=== PATIENT | female | born 1985 | race Two or more races ===

== ENCOUNTER 2019-04-05 07:30 | Inpatient (IN) | payer BC ==
[~2019-04-05] VITALS: Ht 154.9 cm; Wt 55.0 kg
[~2019-04-05 07:30] MED LIST: ATOM25CA PO; CARB200T4 PO; ETHI1TAB26 PO; FLUO20CA19 PO; GABA600T7 PO; LITH600C PO; MULT-658 PO; SPIR25TA5 PO
[2019-04-05 08:27] VITALS: BP 94/48
[2019-04-05] MEDS ORDERED: PROMETHAZINE 25 MG/ML, 1ML IV PRN (08:30)
[2019-04-05] MEDS ORDERED: hydrALAzine 20 MG/ML, 1ML IV PRN (08:30)
[2019-04-05] MEDS ORDERED: EPHEDRINE 50 MG/ML, 1ML IVPush PRN (08:30)
[2019-04-05] MEDS ORDERED: HYDROmorphone 2 MG/ML, 1ML IVPush PRN (08:30)
[2019-04-05] MEDS ORDERED: OXYcodone 5 MG/5 ML ORAL.SOL UDC PO PRN (08:30)
[2019-04-05] MEDS ORDERED: LABETALOL 5MG/ML, 20ML IV PRN (08:30)
[2019-04-05] MEDS ORDERED: ONDANSETRON 2MG/ML, 2ML IV PRN (08:30)
[2019-04-05] MEDS ORDERED: LACTATED RINGERS 1,000 ML IV SCH (08:36)
[2019-04-05] MEDS ORDERED: BUSP5TAB2 PO (08:38)
[2019-04-05 08:49] LABS: HCG UR SG 1.021 (1.003-1.030)
[2019-04-05] MEDS ORDERED: GABAPENTIN 300 MG CAPSULE PO ONE (09:00)
[2019-04-05] MEDS ORDERED: ACETAMINOPHEN 500 MG TABLET PO ONE (09:00)
[2019-04-05] MEDS ORDERED: LIDOCAINE/PF 0.5% ,50ML ONE (09:28)
[2019-04-05] MEDS ORDERED: BUPIVACAINE/PF 0.25% ONE (09:28)
[2019-04-05] MEDS ORDERED: VANCOMYCIN 1,000 MG ONE (09:29)
[2019-04-05] MEDS ORDERED: THROMBIN 5,000 UNIT VIAL TP ONE (09:29)
[2019-04-05] MEDS ORDERED: EPINEPHRINE 1 MG/ML, 1ML ONE (09:29)
[2019-04-05] MEDS ORDERED: VANCOMYCIN 500 MG ONE (09:29)
[2019-04-05] MEDS ORDERED: MIDAZOLAM 1 MG/ML, 2ML ONE (09:31)
[2019-04-05] MEDS ORDERED: FENTANYL PF 250 MCG/5ML ONE (09:31)
[2019-04-05] MEDS ORDERED: SUCCINYLCHOLINE 20 MG/ML, 10ML ONE (09:34)
[2019-04-05] MEDS ORDERED: CEFAZOLIN 1,000 MG ONE (09:34)
[2019-04-05] MEDS ORDERED: ONDANSETRON 2MG/ML, 2ML ONE (09:34)
[2019-04-05] MEDS ORDERED: DEXAMETHASONE 4 MG/ML, 1ML ONE (09:34)
[2019-04-05] MEDS ORDERED: PROPOFOL 10 MG/ML, 20ML ONE (09:34)
[2019-04-05] MEDS ORDERED: SODIUM CHLORIDE 0.9% PF 10ML ONE (10:24)
[2019-04-05] MEDS ORDERED: KETOROLAC 30 MG/1 ML ONE (10:24)
[2019-04-05] MEDS ORDERED: HYDROmorphone 1 MG/ML, 1ML INJ ONE (13:26)
[2019-04-05] MEDS ORDERED: FENTANYL PF 100 MCG/2ML ONE (13:26)
[2019-04-05] MEDS ORDERED: PROMETHAZINE 25 MG/ML, 1ML ONE (13:26)
[2019-04-05] MEDS ORDERED: METHOCARBAMOL 1000MG/10 ML IVPB ONE (13:30)
[2019-04-05] MEDS ORDERED: METHOCARBAMOL 1,000 MG in DEXTROSE 5% 100 ML IV ONE (13:30)
[2019-04-05] MEDS: FENTANYL PF 100 MCG/2ML IV PRN ×3 (13:38→14:08)
[2019-04-05 15:00] VITALS: BP 107/68
[2019-04-05] MEDS: morphine SULFATE 10 MG/ML, 1ML IV PRN ×4 (15:00→17:07)
[2019-04-05] MEDS ORDERED: MORPHINE SULFATE 4 MG/ML, 1ML ONE ×2 (15:03→16:04)
[2019-04-05] MEDS ORDERED: HYDROcodone/APAP 5/325 TABLET ONE (15:52)
[2019-04-05] MEDS: HYDROcodone/APAP 5/325 TABLET PO PRN ×2 (15:55→20:15)
[2019-04-05] MEDS ORDERED: BISACODYL 10 MG SUPP PR PRN (17:00)
[2019-04-05] MEDS ORDERED: PROMETHAZINE 25 MG/ML, 1ML IM PRN (17:00)
[2019-04-05] MEDS ORDERED: MAGNESIUM HYDROXIDE 8%, 30ML UDC PO PRN (17:00)
[2019-04-05] MEDS ORDERED: DIAZEPAM 5 MG/ML, 2ML IV PRN (17:30)
[2019-04-05] MEDS ORDERED: DIAZEPAM 5 MG TABLET PO PRN (17:30)
[2019-04-05] MEDS ORDERED: DIAZEPAM 5 MG/ML, 10ML VIAL IV PRN (17:30)
[2019-04-05] MEDS: CEFAZOLIN PMX 1GM/50ML 50 ML IVPB SCH (17:44)
[2019-04-05] MEDS: D5%-0.9% NACL+KCL 20MEQ 1,000 ML IV SCH (18:29)
[2019-04-05] MEDS: HYDROmorphone 1 MG/ML, 1ML INJ IV PRN ×3 (19:11→23:13)
[2019-04-05 19:59] VITALS: BP 108/71
[2019-04-05] MEDS: SENNA/DOCUSATE TABLET PO SCH (20:13)
[2019-04-05] MEDS: BUSPIRONE 5 MG TABLET PO SCH (20:15)
[2019-04-05] MEDS: GABAPENTIN 300 MG CAPSULE PO SCH (20:15)
[2019-04-05] MEDS: CARBAMAZEPINE 200 MG TABLET PO SCH (20:15)
[2019-04-05] MEDS ORDERED: HYDROmorphone PCA 30 MG/30 ML IV PRN ×3 (21:00→22:30)
[2019-04-05] MEDS: METHOCARBAMOL 750 MG in DEXTROSE 5% 100 ML IV SCH (21:04)
[2019-04-05] MEDS: DEXAMETHASONE 4 MG/ML, 1ML IVPush SCH (23:13)
[2019-04-05 23:55] VITALS: BP 107/75
[2019-04-06] MEDS: CEFAZOLIN PMX 1GM/50ML 50 ML IVPB SCH (01:52)
[2019-04-06] MEDS: D5%-0.9% NACL+KCL 20MEQ 1,000 ML IV SCH ×3 (02:51→22:47)
[2019-04-06] MEDS: DEXAMETHASONE 4 MG/ML, 1ML IVPush SCH ×2 (02:59→05:52)
[2019-04-06 03:00] VITALS: BP 112/76
[2019-04-06 05:25] LABS: MEAN CORPUSCULAR HEMOGLOBIN 32.4 pg (27.0-34.8); MEAN CORPUSCULAR HGB CONC 33.4 g/dL (32.4-35.8); MEAN CORPUSCULAR VOLUME 96.9 fL (80-100); MEAN PLATELET VOLUME 7.6 fL (7.4-10.4); PLATELET COUNT 338 x10^3/uL (130-400); RED BLOOD COUNT 3.62 x10^6/uL (3.82-5.3); RED CELL DISTRIBUTION WIDTH 13.6 % (9.6-15.2)
[2019-04-06] MEDS: METHOCARBAMOL 750 MG in DEXTROSE 5% 100 ML IV SCH ×3 (05:25→21:17)
[2019-04-06 05:37] LABS: ANION GAP 7 mmol/L (5-15); CALCIUM 8.1 mg/dL (8.5-10.1); CHLORIDE 107 mmol/L (98-107); CREATININE 0.78 mg/dL (0.55-1.02)
[2019-04-06 06:15] LABS: MD YES
[2019-04-06 06:16] LABS: BAND#(MANUAL) 1.93 x10^3/uL; BANDS%(MANUAL) 7 % (0-7); LYMPH#(MANUAL) 0.55 x10^3/uL (1-3.4); LYMPHS% (MANUAL) 2 % (22-44); MONOS#(MANUAL) 0.55 x10^3/uL (0.3-2.7); MONOS% (MANUAL) 2 % (2-9); SEG#(MANUAL) 24.48 x10^3/uL (1.8-6.8); SEGS% (MANUAL) 89 % (42-75)
[2019-04-06 06:17] LABS: <PLATELET ESTIMATE> ADEQUATE; <PLT MORPHOLOGY> NORMAL PLT MORPH; <RBC MORPHOLOGY> NORMAL
[2019-04-06 08:00] VITALS: BP 96/65
[2019-04-06] MEDS: SPIRONOLACTONE 50 MG TABLET PO SCH (09:59)
[2019-04-06] MEDS: FLUOXETINE HCL 20 MG CAPSULE PO SCH (10:00)
[2019-04-06] MEDS: BUSPIRONE 5 MG TABLET PO SCH ×2 (10:00→21:17)
[2019-04-06] MEDS: CARBAMAZEPINE 200 MG TABLET PO SCH ×2 (10:00→21:19)
[2019-04-06] MEDS: SENNA/DOCUSATE TABLET PO SCH ×2 (10:00→21:17)
[2019-04-06] MEDS: GABAPENTIN 300 MG CAPSULE PO SCH ×3 (10:00→21:17)
[2019-04-06] MEDS: ATOMOXETINE 25 MG HOMEMEDPO SCH (10:01)
[2019-04-06] MEDS: DROSPIRENONE HOMEMEDPO SCH (10:02)
[2019-04-06] MEDS: ETHINYL ESTRADIOL HOMEMEDPO SCH (10:02)
[2019-04-06 11:34] VITALS: BP 98/64
[2019-04-06 16:30] VITALS: BP 107/72
[2019-04-06] MEDS: LITHIUM CARBONATE 300 MG TABLET.ER PO SCH (16:35)
[2019-04-06 18:12] VITALS: BP 115/73
[2019-04-06] MEDS: CIPROFLOXACIN 500 MG TABLET PO SCH (21:17)
[2019-04-07 01:29] VITALS: BP 112/67
[2019-04-07] MEDS ORDERED: ACETAMINOPHEN 325 MG TABLET PO PRN (01:45)
[2019-04-07] MEDS: METHOCARBAMOL 750 MG in DEXTROSE 5% 100 ML IV SCH ×2 (05:39→14:11)
[2019-04-07 06:08] LABS: MEAN CORPUSCULAR HEMOGLOBIN 32.3 pg (27.0-34.8); MEAN CORPUSCULAR HGB CONC 33.3 g/dL (32.4-35.8); MEAN CORPUSCULAR VOLUME 97.1 fL (80-100); MEAN PLATELET VOLUME 7.2 fL (7.4-10.4); PLATELET COUNT 297 x10^3/uL (130-400); RED BLOOD COUNT 3.39 x10^6/uL (3.82-5.3); RED CELL DISTRIBUTION WIDTH 13.3 % (9.6-15.2)
[2019-04-07 06:15] LABS: ANION GAP 4 mmol/L (5-15); CALCIUM 8.2 mg/dL (8.5-10.1); CHLORIDE 109 mmol/L (98-107)
[2019-04-07 06:18] LABS: CREATININE 0.64 mg/dL (0.55-1.02)
[2019-04-07 06:49] VITALS: BP 125/72
[2019-04-07] MEDS: ATOMOXETINE 25 MG HOMEMEDPO SCH (09:00)
[2019-04-07] MEDS: DROSPIRENONE HOMEMEDPO SCH (09:00)
[2019-04-07] MEDS: ETHINYL ESTRADIOL HOMEMEDPO SCH (09:00)
[2019-04-07 09:10] LABS: BASOPHILS # (AUTO) 0.03 x10^3/uL (0-0.1); BASOPHILS % (AUTO) 0 % (0-1); EOSINOPHILS # (AUTO) 0.02 x10^3/uL (0-0.4); EOSINOPHILS % (AUTO) 0 % (1-7); LYMPHOCYTES % (AUTO) 5 % (22-44); MD SCAN; MONOCYTES # (AUTO) 1.01 x10^3/uL (0.2-0.8); MONOCYTES % (AUTO) 5 % (2-9); NEUTROPHILS # (AUTO) 17.81 x10^3/uL (1.8-6.8); NEUTROPHILS % (AUTO) 90 % (42-75)
[2019-04-07] MEDS: D5%-0.9% NACL+KCL 20MEQ 1,000 ML IV SCH ×2 (12:39→23:53)
[2019-04-07] MEDS: CARBAMAZEPINE 200 MG TABLET PO SCH ×2 (13:00→20:26)
[2019-04-07] MEDS: CIPROFLOXACIN 500 MG TABLET PO SCH ×2 (13:01→20:26)
[2019-04-07] MEDS: LITHIUM CARBONATE 300 MG TABLET.ER PO SCH (13:01)
[2019-04-07] MEDS: FLUOXETINE HCL 20 MG CAPSULE PO SCH (13:01)
[2019-04-07] MEDS: BUSPIRONE 5 MG TABLET PO SCH ×2 (13:01→20:26)
[2019-04-07] MEDS: SENNA/DOCUSATE TABLET PO SCH ×2 (13:02→20:26)
[2019-04-07] MEDS: SPIRONOLACTONE 50 MG TABLET PO SCH (13:02)
[2019-04-07] MEDS: GABAPENTIN 300 MG CAPSULE PO SCH ×3 (13:02→20:26)
[2019-04-07 14:03] VITALS: BP 126/71
[2019-04-07 19:57] VITALS: BP 122/80
[2019-04-07] MEDS: METHOCARBAMOL 750 MG TABLET PO SCH (21:30)
[2019-04-08 00:49] VITALS: BP 123/82
[2019-04-08] MEDS: METHOCARBAMOL 750 MG TABLET PO SCH (05:28)
[2019-04-08 06:59] VITALS: BP 93/59
[2019-04-08] MEDS ORDERED: SPIRONOLACTONE 25 MG TABLET ONE (08:45)
[2019-04-08] MEDS: SPIRONOLACTONE 50 MG TABLET PO SCH (09:00)
[2019-04-08] MEDS: DROSPIRENONE HOMEMEDPO SCH (09:00)
[2019-04-08] MEDS: ETHINYL ESTRADIOL HOMEMEDPO SCH (09:00)
[2019-04-08] MEDS: ATOMOXETINE 25 MG HOMEMEDPO SCH (09:00)
[2019-04-08] MEDS: BUSPIRONE 5 MG TABLET PO SCH ×2 (12:52→20:05)
[2019-04-08] MEDS: CIPROFLOXACIN 500 MG TABLET PO SCH ×2 (12:53→20:05)
[2019-04-08] MEDS: LITHIUM CARBONATE 300 MG TABLET.ER PO SCH (12:53)
[2019-04-08] MEDS: SENNA/DOCUSATE TABLET PO SCH ×2 (12:54→20:04)
[2019-04-08] MEDS: CARBAMAZEPINE 200 MG TABLET PO SCH ×2 (12:54→20:05)
[2019-04-08] MEDS: GABAPENTIN 300 MG CAPSULE PO SCH ×3 (12:54→20:05)
[2019-04-08] MEDS: FLUOXETINE HCL 20 MG CAPSULE PO SCH (12:54)
[2019-04-08] MEDS: HYDROcodone/APAP 10/325 MG TABLET PO PRN ×3 (12:55→21:59)
[2019-04-08 13:48] VITALS: BP 103/70
[2019-04-08] MEDS: D5%-0.9% NACL+KCL 20MEQ 1,000 ML IV SCH (14:20)
[2019-04-08] MEDS: ONDANSETRON 2MG/ML, 2ML IV PRN (17:20)
[2019-04-08 18:36] VITALS: BP 104/71
[2019-04-08] MEDS: METHOCARBAMOL 750 MG TABLET PO PRN (20:04)
[2019-04-09] MEDS: D5%-0.9% NACL+KCL 20MEQ 1,000 ML IV SCH ×2 (00:12→10:31)
[2019-04-09 00:24] VITALS: BP 117/79
[2019-04-09] MEDS: HYDROcodone/APAP 10/325 MG TABLET PO PRN ×2 (02:56→07:42)
[2019-04-09 05:13] LABS: MEAN CORPUSCULAR HEMOGLOBIN 32.4 pg (27.0-34.8); MEAN CORPUSCULAR HGB CONC 33.4 g/dL (32.4-35.8); MEAN PLATELET VOLUME 7.2 fL (7.4-10.4); PLATELET COUNT 303 x10^3/uL (130-400); RED BLOOD COUNT 3.35 x10^6/uL (3.82-5.3); RED CELL DISTRIBUTION WIDTH 13.3 % (9.6-15.2)
[2019-04-09 05:28] LABS: ANION GAP 3 mmol/L (5-15); CALCIUM 8.4 mg/dL (8.5-10.1); CHLORIDE 105 mmol/L (98-107)
[2019-04-09 05:31] LABS: CREATININE 0.47 mg/dL (0.55-1.02)
[2019-04-09 06:09] LABS: BASOPHILS # (AUTO) 0.04 x10^3/uL (0-0.1); BASOPHILS % (AUTO) 0 % (0-1); EOSINOPHILS # (AUTO) 0.13 x10^3/uL (0-0.4); EOSINOPHILS % (AUTO) 1 % (1-7); LYMPHOCYTES # (AUTO) 0.89 x10^3/uL (1-3.4); LYMPHOCYTES % (AUTO) 5 % (22-44); MD SCAN; MONOCYTES # (AUTO) 1.03 x10^3/uL (0.2-0.8); MONOCYTES % (AUTO) 6 % (2-9); NEUTROPHILS # (AUTO) 16.69 x10^3/uL (1.8-6.8); NEUTROPHILS % (AUTO) 89 % (42-75)
[2019-04-09 06:35] VITALS: BP 109/74
[2019-04-09] MEDS ORDERED: SPIRONOLACTONE 25 MG TABLET ONE (09:01)
[2019-04-09] MEDS: CIPROFLOXACIN 500 MG TABLET PO SCH (09:07)
[2019-04-09] MEDS: CARBAMAZEPINE 200 MG TABLET PO SCH (09:07)
[2019-04-09] MEDS: FLUOXETINE HCL 20 MG CAPSULE PO SCH (09:08)
[2019-04-09] MEDS: GABAPENTIN 300 MG CAPSULE PO SCH (09:08)
[2019-04-09] MEDS: SENNA/DOCUSATE TABLET PO SCH (09:08)
[2019-04-09] MEDS: BUSPIRONE 5 MG TABLET PO SCH (09:08)
[2019-04-09] MEDS: SPIRONOLACTONE 50 MG TABLET PO SCH (09:09)
[2019-04-09] MEDS: ATOMOXETINE 25 MG HOMEMEDPO SCH (09:09)
[2019-04-09] MEDS: DROSPIRENONE HOMEMEDPO SCH (09:09)
[2019-04-09] MEDS: LITHIUM CARBONATE 300 MG TABLET.ER PO SCH (09:09)
[2019-04-09] MEDS: ETHINYL ESTRADIOL HOMEMEDPO SCH (09:09)
[2019-04-09] MEDS: ONDANSETRON 2MG/ML, 2ML IV PRN (10:48)
[2019-04-09] MEDS: OXYcodone IR 5MG TABLET PO PRN ×2 (11:09→13:51)
[2019-04-09] MEDS ORDERED: OXYC5TAB3 PO (12:50)
[2019-04-09] MEDS ORDERED: METH750T87 PO (12:57)
[2019-04-09] MEDS ORDERED: CIPR500T3 PO (12:59)
[2019-04-09] MEDS: METHOCARBAMOL 750 MG TABLET PO PRN (13:49)
[2019-04-09 14:15] VITALS: BP 110/76
== END 2019-04-09 15:00 | disposition home or self-care (01) | DRG 460 ==
LOC: ORIP 07:50 → 4NE 15:02 → DCLOUNGE 04-09 14:49
PROVIDERS: ADMIT Orthopaedic Surgery Orthopaedic Surgery of the Spine; ATTEND Orthopaedic Surgery Orthopaedic Surgery of the Spine
PROC: 4A11X4G Monitoring of Peripheral Nervous Electrical Activity, Intraoperative, External Approach (ICD-10-PCS; 2019-04-05)
PROC: 0SG00A0 Fusion of Lumbar Vertebral Joint with Interbody Fusion Device, Anterior Approach, Anterior Column, Open Approach (ICD-10-PCS; principal; 2019-04-05 11:00)
DX: M43.16 Spondylolisthesis, lumbar region (principal); M48.061 Spinal stenosis, lumbar region without neurogenic claudication; M54.16 Radiculopathy, lumbar region; M41.9 Scoliosis, unspecified
CPT/HCPCS: 36415; 72100; 80048; 81025; 85025; 93005; C1713; G0378; J0171; J0690; J1100; J1170; J1885; J2001; J2250; J2405; J2550; J2704; J3010; J3360; J3370; J3490; C1760; C1762; C1889; J0330; J2270; J2800; J3480; J7120

== ENCOUNTER 2019-04-14 21:42 | Inpatient (IN) | payer BC ==
[~2019-04-14] VITALS: Ht 154.9 cm; Wt 51.0 kg
[~2019-04-14 21:42] MED LIST changes: +BUSP5TAB2 PO; +CIPR500T3 PO; +METH750T87 PO; +OXYC5TAB3 PO
--- NOTE | 2019-04-14 22:04 | NUR ---
Pt transferred from [facility] s/t abd distention and constipation s/p spinal fusion on 04/05. Pt states she was doing well until 4 days ago. Sudden onset N/V and constipation. Pt unable to keep home meds down. Pt appears uncomrtable at this time. Received 150 mcg Fent and 5 versed just [employer] from EMS. Monitors connected and call light in reach. Ice pack given. Awaiting ERP eval.
--- NOTE | 2019-04-14 22:15 | NUR ---
ERP AT BEDSIDE TO [facility]
[2019-04-14] MEDS ORDERED: ONDANSETRON 2MG/ML, 2ML ONE (22:27)
[2019-04-14] MEDS ORDERED: HYDROmorphone 1 MG/ML, 1ML INJ ONE ×2 (22:27→23:15)
[2019-04-14] MEDS ORDERED: ONDANSETRON 2MG/ML, 2ML IVPush ONE (22:30)
[2019-04-14] MEDS ORDERED: SODIUM CHLORIDE FLUSH 10ML SYR IVF ONE (22:30)
[2019-04-14] MEDS ORDERED: SODIUM CHLORIDE 0.9% 1,000ML IVBOLUS ONE (22:30)
[2019-04-14] MEDS: HYDROmorphone 1 MG/ML, 1ML INJ IVPush PRN ×2 (22:35→23:23)
--- NOTE | 2019-04-14 22:38 | NUR ---
PT MEDICATED PER MAR FOR ABD PAIN. IV FLUIDS INFUSING. VSS. CALL LIGHT IN REACH. NO FURTHER NEEDS EXPRESSED.
[2019-04-14 22:50] LABS: ALANINE AMINOTRANSFERASE 23 U/L (12-78); ALBUMIN 2.6 g/dL (3.4-5.0); ANION GAP 9 mmol/L (5-15); CALCIUM 8.2 mg/dL (8.5-10.1); CHLORIDE 97 mmol/L (98-107); CREATININE 0.41 mg/dL (0.55-1.02)
[2019-04-14 22:55] LABS: ALKALINE PHOSPHATASE 89 U/L (45-117); BILIRUBIN,TOTAL 0.3 mg/dL (0.2-1.0); TOTAL PROTEIN 6.4 g/dL (6.4-8.2)
[2019-04-14 22:58] LABS: MEAN CORPUSCULAR HEMOGLOBIN 31.6 pg (27.0-34.8); MEAN CORPUSCULAR VOLUME 95.6 fL (80-100); MEAN PLATELET VOLUME 6.7 fL (7.4-10.4); PLATELET COUNT 508 x10^3/uL (130-400); RED BLOOD COUNT 3.54 x10^6/uL (3.82-5.3)
[2019-04-14] MEDS ORDERED: POTASSIUM CHLORIDE 40 MEQ in SODIUM CHLORIDE 0.9% 500 ML IV ONE (23:00)
[2019-04-14 23:20] LABS: BASOPHILS # (AUTO) 0.01 x10^3/uL (0-0.1); BASOPHILS % (AUTO) 0 % (0-1); EOSINOPHILS # (AUTO) 0.12 x10^3/uL (0-0.4); EOSINOPHILS % (AUTO) 1 % (1-7); LYMPHOCYTES # (AUTO) 1.48 x10^3/uL (1-3.4); LYMPHOCYTES % (AUTO) 8 % (22-44); MD SCAN; MONOCYTES # (AUTO) 0.82 x10^3/uL (0.2-0.8); MONOCYTES % (AUTO) 4 % (2-9); NEUTROPHILS # (AUTO) 16.78 x10^3/uL (1.8-6.8); NEUTROPHILS % (AUTO) 87 % (42-75)
[2019-04-14] MEDS ORDERED: AMPICILLIN/SULBACTAM 3 GM in SODIUM CHLORIDE 0.9% 100 ML IV ONE (23:30)
[2019-04-14] MEDS ORDERED: VANCOMYCIN PER PHARMACY MC PRN (23:30)
[2019-04-14] MEDS ORDERED: VANCOMYCIN PMX 1GM/200ML 200 ML IV ONE (23:30)
--- NOTE | 2019-04-14 23:35 | NUR ---
PT MEDICATED WITH REPEAT DILAUDID S/T PAIN. IV K+ INFUSING VIA PUMP. ANTIBIOTICS STARTED S/T BLOOD CULTURES X2 DRAWN. VERIFIED WITH MONICO IN PHARMACY THAT K+ AND ANTIBIOTICS ARE COMPATIBLE. CALL LIGHT IN REACH.
--- NOTE | 2019-04-15 00:10 | NUR ---
SURGEON AT BEDSIDE FOR CONSULT. PER MD, NG TUBE TO BE HELD UNLESS SIG VOMITING RETURNS OR PT REQUESTS. PT STATES SHE WOULD LIKE TO DECIDE IN AM AFTER SOME REST.
--- NOTE | 2019-04-15 00:14 | NUR ---
PT TO XRAY VIA [facility]
[2019-04-15] MEDS ORDERED: PHARMACOKINETIC MONITORING MC PRN (01:00)
[2019-04-15 01:45] VITALS: BP 104/70
[2019-04-15] MEDS: PIPERACILLIN/TAZO/PMX 3.375GM 50 ML IV SCH ×4 (03:14→23:43)
[2019-04-15] MEDS: NS + 20MEQ KCL 1,000 ML IV SCH ×2 (03:14→17:50)
[2019-04-15] MEDS ORDERED: KETOROLAC 30 MG/1 ML IVPush ONE ×2 (03:30→08:30)
[2019-04-15 05:47] LABS: MEAN CORPUSCULAR HEMOGLOBIN 31.9 pg (27.0-34.8); MEAN CORPUSCULAR HGB CONC 33.3 g/dL (32.4-35.8); MEAN CORPUSCULAR VOLUME 95.6 fL (80-100); MEAN PLATELET VOLUME 6.8 fL (7.4-10.4); PLATELET COUNT 495 x10^3/uL (130-400); RED CELL DISTRIBUTION WIDTH 12.9 % (9.6-15.2)
[2019-04-15 05:48] LABS: ANION GAP 10 mmol/L (5-15); CALCIUM 7.8 mg/dL (8.5-10.1); CHLORIDE 102 mmol/L (98-107)
[2019-04-15 05:50] LABS: CREATININE 0.39 mg/dL (0.55-1.02)
[2019-04-15 06:13] LABS: MD YES
[2019-04-15 06:15] LABS: <PLATELET ESTIMATE> INCREASED; <PLT MORPHOLOGY> NORMAL PLT MORPH; <RBC MORPHOLOGY> NORMAL; BAND#(MANUAL) 1.66 x10^3/uL; BANDS%(MANUAL) 8 % (0-7); LYMPH#(MANUAL) 0.83 x10^3/uL (1-3.4); LYMPHS% (MANUAL) 4 % (22-44); METAMYELOCYTES# (MANUAL) 0.21 x10^3/uL (0-0); METAMYELOCYTES% (MANUAL) 1 % (0-1); MONOS#(MANUAL) 0.62 x10^3/uL (0.3-2.7); MONOS% (MANUAL) 3 % (2-9); SEG#(MANUAL) 17.39 x10^3/uL (1.8-6.8); SEGS% (MANUAL) 84 % (42-75)
[2019-04-15 07:34] VITALS: BP 102/69
[2019-04-15] MEDS ORDERED: KETOROLAC 30 MG/1 ML ONE ×2 (08:32→13:54)
[2019-04-15] MEDS: BISACODYL 10 MG SUPP PR SCH ×2 (08:36)
[2019-04-15] MEDS ORDERED: VANCOMYCIN PER PHARMACY MC PRN ×2 (09:30)
[2019-04-15] MEDS: morphine SULFATE 10 MG/ML, 1ML IVPush PRN (09:47)
[2019-04-15] MEDS: ONDANSETRON 2MG/ML, 2ML IVPush PRN (09:48)
[2019-04-15 09:55] LABS: HCT (SEDRATE) 32.3 % (34.6-47.8)
[2019-04-15] MEDS ORDERED: PHARMACOKINETIC CONSULTATION MC ONE (10:00)
[2019-04-15] MEDS ORDERED: NALOXONE 1 MG/ML, 2ML ONE (10:27)
[2019-04-15] MEDS ORDERED: FENTANYL PF 100 MCG/2ML ONE ×4 (10:27→16:31)
[2019-04-15] MEDS ORDERED: FLUMAZENIL 0.1 MG/1 ML, 5ML ONE (10:27)
[2019-04-15] MEDS ORDERED: MIDAZOLAM 1 MG/ML, 5ML ONE (10:27)
[2019-04-15] MEDS ORDERED: LIDOCAINE 1%, 20ML ONE (10:27)
[2019-04-15] MEDS ORDERED: OXYcodone 5 MG/5 ML ORAL.SOL UDC PO PRN (12:00)
[2019-04-15] MEDS ORDERED: MEPERIDINE/PF 25MG/ML,1ML IVPush PRN (12:00)
[2019-04-15] MEDS ORDERED: ONDANSETRON 2MG/ML, 2ML IV PRN (12:00)
[2019-04-15] MEDS ORDERED: LABETALOL 5MG/ML, 20ML IV PRN (12:00)
[2019-04-15] MEDS ORDERED: EPHEDRINE 50 MG/ML, 1ML IVPush PRN (12:00)
[2019-04-15] MEDS ORDERED: hydrALAzine 20 MG/ML, 1ML IV PRN (12:00)
[2019-04-15] MEDS ORDERED: ACETAMINOPHEN 325 MG TABLET PO PRN (12:00)
[2019-04-15] MEDS ORDERED: BUPIVACAINE/PF 0.5% ONE (12:38)
[2019-04-15] MEDS ORDERED: EPINEPHRINE 1 MG/ML, 1ML ONE ×2 (12:38→12:39)
[2019-04-15] MEDS ORDERED: MIDAZOLAM 1 MG/ML, 2ML ONE (12:56)
[2019-04-15] MEDS ORDERED: FENTANYL PF 250 MCG/5ML ONE (12:56)
[2019-04-15] MEDS ORDERED: LIDOCAINE-MPF 2% ,5ML ONE (13:54)
[2019-04-15] MEDS ORDERED: ROCURONIUM 10MG/ML,5ML ONE (14:15)
[2019-04-15] MEDS ORDERED: BACITRACIN 50,000 UNIT ONE (14:29)
[2019-04-15] MEDS ORDERED: ONDANSETRON 2MG/ML, 2ML ONE (15:04)
[2019-04-15] MEDS ORDERED: PROPOFOL 10 MG/ML, 20ML ONE (15:04)
[2019-04-15] MEDS ORDERED: GLYCOPYRROLATE 0.2MG/1ML, 5ML ONE (15:04)
[2019-04-15] MEDS ORDERED: SUCCINYLCHOLINE 20 MG/ML, 10ML ONE (15:04)
[2019-04-15] MEDS ORDERED: DEXAMETHASONE 4 MG/ML, 1ML ONE (15:04)
[2019-04-15] MEDS ORDERED: NEOSTIGMINE 1 MG/ML, 10ML ONE (15:04)
[2019-04-15] MEDS: FENTANYL PF 100 MCG/2ML IV PRN ×4 (15:22→16:42)
[2019-04-15] MEDS ORDERED: HYDROmorphone 1 MG/ML, 1ML INJ ONE ×2 (15:24→15:51)
[2019-04-15] MEDS: HYDROmorphone 2 MG/ML, 1ML IVPush PRN ×4 (15:24→16:10)
[2019-04-15] MEDS: PROMETHAZINE 25 MG/ML, 1ML IV PRN ×2 (15:51→16:11)
[2019-04-15] MEDS ORDERED: PROMETHAZINE 25 MG/ML, 1ML ONE (15:51)
[2019-04-15] MEDS: VANCOMYCIN 1,200 MG in SODIUM CHLORIDE 0.9% 250 ML IV SCH (17:50)
[2019-04-15] MEDS ORDERED: DIAZEPAM 5 MG/ML, 2ML IV ONE (21:30)
[2019-04-16] MEDS: ONDANSETRON 2MG/ML, 2ML IVPush PRN (00:46)
[2019-04-16] MEDS: morphine SULFATE 10 MG/ML, 1ML IVPush PRN (03:02)
[2019-04-16 04:00] VITALS: BP 111/69
[2019-04-16] MEDS: NS + 20MEQ KCL 1,000 ML IV SCH ×2 (04:04→14:54)
[2019-04-16 05:05] LABS: MEAN CORPUSCULAR HEMOGLOBIN 31.3 pg (27.0-34.8); MEAN CORPUSCULAR HGB CONC 32.6 g/dL (32.4-35.8); MEAN CORPUSCULAR VOLUME 96.1 fL (80-100); MEAN PLATELET VOLUME 7.5 fL (7.4-10.4); PLATELET COUNT 458 x10^3/uL (130-400); RED CELL DISTRIBUTION WIDTH 13.6 % (9.6-15.2)
[2019-04-16 05:12] LABS: ALANINE AMINOTRANSFERASE 19 U/L (12-78); ALBUMIN 2.3 g/dL (3.4-5.0); ANION GAP 12 mmol/L (5-15); CALCIUM 8.3 mg/dL (8.5-10.1); CHLORIDE 106 mmol/L (98-107)
[2019-04-16 05:15] LABS: ALKALINE PHOSPHATASE 76 U/L (45-117); BILIRUBIN,TOTAL 0.5 mg/dL (0.2-1.0); CREATININE 0.48 mg/dL (0.55-1.02); TOTAL PROTEIN 6.1 g/dL (6.4-8.2)
[2019-04-16] MEDS: VANCOMYCIN 1,200 MG in SODIUM CHLORIDE 0.9% 250 ML IV SCH ×2 (05:21→17:24)
[2019-04-16 05:30] LABS: MD YES
[2019-04-16 05:32] LABS: <PLATELET ESTIMATE> INCREASED; <PLT MORPHOLOGY> NORMAL PLT MORPH; <RBC MORPHOLOGY> NORMAL; BANDS%(MANUAL) 12 % (0-7); LYMPH#(MANUAL) 1.29 x10^3/uL (1-3.4); LYMPHS% (MANUAL) 5 % (22-44); MONOS#(MANUAL) 0.77 x10^3/uL (0.3-2.7); MONOS% (MANUAL) 3 % (2-9); MYELOCYTES# (MANUAL) 0.26 x10^3/uL (0-0); MYELOCYTES% (MANUAL) 1 % (0-0); SEG#(MANUAL) 20.38 x10^3/uL (1.8-6.8); SEGS% (MANUAL) 79 % (42-75)
[2019-04-16] MEDS: PIPERACILLIN/TAZO/PMX 3.375GM 50 ML IV SCH ×4 (06:41→23:30)
[2019-04-16] MEDS: BISACODYL 10 MG SUPP PR SCH (08:30)
[2019-04-16] MEDS: DIAZEPAM 5 MG/ML, 2ML IVPush PRN ×3 (08:30→21:34)
[2019-04-16] MEDS ORDERED: PHENOL THROAT SPRAY BOTTLE MM PRN (09:30)
[2019-04-16 12:00] VITALS: BP 108/74
[2019-04-16 18:34] VITALS: BP 106/70
[2019-04-17] MEDS: ONDANSETRON 2MG/ML, 2ML IVPush PRN (01:08)
[2019-04-17] MEDS: NS + 20MEQ KCL 1,000 ML IV SCH ×3 (01:09→21:34)
[2019-04-17 01:45] VITALS: BP 107/70
[2019-04-17] MEDS ORDERED: VANCOMYCIN 1,000 MG in SODIUM CHLORIDE 0.9% 100 ML IV SCH (02:00)
[2019-04-17] MEDS: VANCOMYCIN PMX 1GM/200ML 200 ML IV SCH ×3 (02:21→18:44)
[2019-04-17] MEDS: DIAZEPAM 5 MG/ML, 2ML IVPush PRN ×4 (03:33→23:00)
[2019-04-17 04:42] VITALS: BP 117/63
[2019-04-17] MEDS: PIPERACILLIN/TAZO/PMX 3.375GM 50 ML IV SCH ×3 (05:30→17:44)
[2019-04-17 06:48] LABS: MEAN CORPUSCULAR HEMOGLOBIN 31.8 pg (27.0-34.8); MEAN CORPUSCULAR HGB CONC 32.7 g/dL (32.4-35.8); MEAN CORPUSCULAR VOLUME 97.3 fL (80-100); MEAN PLATELET VOLUME 6.1 fL (7.4-10.4); PLATELET COUNT 635 x10^3/uL (130-400); RED CELL DISTRIBUTION WIDTH 13.9 % (9.6-15.2)
[2019-04-17 07:38] VITALS: BP 113/77
[2019-04-17 07:53] LABS: MD YES
[2019-04-17 07:54] LABS: BAND#(MANUAL) 0.19 x10^3/uL; BANDS%(MANUAL) 1 % (0-7); LYMPH#(MANUAL) 1.86 x10^3/uL (1-3.4); LYMPHS% (MANUAL) 10 % (22-44); MONOS#(MANUAL) 0.56 x10^3/uL (0.3-2.7); MONOS% (MANUAL) 3 % (2-9); MYELOCYTES# (MANUAL) 0.19 x10^3/uL (0-0); MYELOCYTES% (MANUAL) 1 % (0-0); SEG#(MANUAL) 15.81 x10^3/uL (1.8-6.8); SEGS% (MANUAL) 85 % (42-75)
[2019-04-17 07:55] LABS: <PLATELET ESTIMATE> INCREASED; <PLT MORPHOLOGY> NORMAL PLT MORPH; <RBC MORPHOLOGY> NORMAL
[2019-04-17] MEDS: BISACODYL 10 MG SUPP PR SCH (09:00)
[2019-04-17 12:24] VITALS: BP 102/71
[2019-04-17 19:40] VITALS: BP 112/75
[2019-04-18] MEDS: PIPERACILLIN/TAZO/PMX 3.375GM 50 ML IV SCH ×5 (00:14→23:25)
[2019-04-18] MEDS: VANCOMYCIN PMX 1GM/200ML 200 ML IV SCH ×2 (03:17→09:45)
[2019-04-18 03:49] VITALS: BP 111/75
[2019-04-18] MEDS: NS + 20MEQ KCL 1,000 ML IV SCH ×3 (05:15→21:06)
[2019-04-18] MEDS: DIAZEPAM 5 MG/ML, 2ML IVPush PRN ×4 (05:15→23:25)
[2019-04-18 05:57] LABS: BASOPHILS # (AUTO) 0.01 x10^3/uL (0-0.1); BASOPHILS % (AUTO) 0 % (0-1); EOSINOPHILS # (AUTO) 0.03 x10^3/uL (0-0.4); EOSINOPHILS % (AUTO) 0 % (1-7); LYMPHOCYTES # (AUTO) 1.12 x10^3/uL (1-3.4); LYMPHOCYTES % (AUTO) 9 % (22-44); MD NO; MEAN CORPUSCULAR HEMOGLOBIN 31.9 pg (27.0-34.8); MEAN CORPUSCULAR HGB CONC 32.9 g/dL (32.4-35.8); MEAN CORPUSCULAR VOLUME 96.9 fL (80-100); MEAN PLATELET VOLUME 6.2 fL (7.4-10.4); MONOCYTES # (AUTO) 0.91 x10^3/uL (0.2-0.8); MONOCYTES % (AUTO) 7 % (2-9); NEUTROPHILS # (AUTO) 10.96 x10^3/uL (1.8-6.8); NEUTROPHILS % (AUTO) 84 % (42-75); PLATELET COUNT 740 x10^3/uL (130-400); RED BLOOD COUNT 3.19 x10^6/uL (3.82-5.3); RED CELL DISTRIBUTION WIDTH 13.5 % (9.6-15.2)
[2019-04-18 07:33] VITALS: BP 111/73
[2019-04-18] MEDS: BISACODYL 10 MG SUPP PR SCH (09:00)
[2019-04-18 13:03] VITALS: BP 103/68
[2019-04-18] MEDS ORDERED: MICAFUNGIN 100 MG in SODIUM CHLORIDE 0.9% 100 ML IV SCH (18:30)
[2019-04-18 20:09] VITALS: BP 106/72
[2019-04-19 03:03] VITALS: BP 101/68
[2019-04-19] MEDS: PIPERACILLIN/TAZO/PMX 3.375GM 50 ML IV SCH ×4 (05:57→23:28)
[2019-04-19] MEDS: DIAZEPAM 5 MG/ML, 2ML IVPush PRN ×3 (06:04→18:08)
[2019-04-19] MEDS: NS + 20MEQ KCL 1,000 ML IV SCH ×2 (06:04→20:25)
[2019-04-19 06:05] LABS: BASOPHILS # (AUTO) 0.02 x10^3/uL (0-0.1); BASOPHILS % (AUTO) 0 % (0-1); EOSINOPHILS # (AUTO) 0.04 x10^3/uL (0-0.4); EOSINOPHILS % (AUTO) 0 % (1-7); LYMPHOCYTES # (AUTO) 1.02 x10^3/uL (1-3.4); LYMPHOCYTES % (AUTO) 10 % (22-44); MD NO; MEAN CORPUSCULAR HEMOGLOBIN 31.6 pg (27.0-34.8); MEAN CORPUSCULAR HGB CONC 33.2 g/dL (32.4-35.8); MEAN CORPUSCULAR VOLUME 95.2 fL (80-100); MONOCYTES # (AUTO) 0.93 x10^3/uL (0.2-0.8); MONOCYTES % (AUTO) 9 % (2-9); NEUTROPHILS # (AUTO) 7.84 x10^3/uL (1.8-6.8); NEUTROPHILS % (AUTO) 80 % (42-75); PLATELET COUNT 768 x10^3/uL (130-400); RED BLOOD COUNT 2.78 x10^6/uL (3.82-5.3); RED CELL DISTRIBUTION WIDTH 13.2 % (9.6-15.2)
[2019-04-19 06:13] LABS: CREATININE 0.38 mg/dL (0.55-1.02)
[2019-04-19 07:28] VITALS: BP 101/68
[2019-04-19] MEDS ORDERED: POTASSIUM PHOSPHATE 22 MEQ in SODIUM CHLORIDE 0.9% 250 ML IV ONE (08:00)
[2019-04-19] MEDS: BISACODYL 10 MG SUPP PR SCH (09:51)
[2019-04-19] MEDS: FLUCONAZOLE 200 MG TABLET PO SCH (09:51)
[2019-04-19 14:12] VITALS: BP 103/68
[2019-04-19] MEDS: ONDANSETRON 2MG/ML, 2ML IVPush PRN (14:37)
[2019-04-19 19:53] VITALS: BP 101/67
[2019-04-20 00:54] VITALS: BP 108/72
[2019-04-20] MEDS: DIAZEPAM 5 MG/ML, 2ML IVPush PRN ×4 (01:02→21:49)
[2019-04-20] MEDS: NS + 20MEQ KCL 1,000 ML IV SCH (04:30)
[2019-04-20] MEDS: PIPERACILLIN/TAZO/PMX 3.375GM 50 ML IV SCH ×4 (05:23→23:20)
[2019-04-20 06:00] LABS: BASOPHILS # (AUTO) 0.01 x10^3/uL (0-0.1); BASOPHILS % (AUTO) 0 % (0-1); EOSINOPHILS # (AUTO) 0.08 x10^3/uL (0-0.4); EOSINOPHILS % (AUTO) 1 % (1-7); LYMPHOCYTES # (AUTO) 1.06 x10^3/uL (1-3.4); LYMPHOCYTES % (AUTO) 9 % (22-44); MD NO; MEAN CORPUSCULAR HEMOGLOBIN 31.4 pg (27.0-34.8); MEAN CORPUSCULAR VOLUME 95.1 fL (80-100); MEAN PLATELET VOLUME 5.9 fL (7.4-10.4); MONOCYTES # (AUTO) 1.08 x10^3/uL (0.2-0.8); MONOCYTES % (AUTO) 9 % (2-9); NEUTROPHILS # (AUTO) 9.51 x10^3/uL (1.8-6.8); NEUTROPHILS % (AUTO) 81 % (42-75); PLATELET COUNT 857 x10^3/uL (130-400); RED BLOOD COUNT 2.89 x10^6/uL (3.82-5.3); RED CELL DISTRIBUTION WIDTH 13.7 % (9.6-15.2)
[2019-04-20 06:04] LABS: ALANINE AMINOTRANSFERASE 12 U/L (12-78); ALBUMIN 1.6 g/dL (3.4-5.0); ANION GAP 5 mmol/L (5-15); CHLORIDE 103 mmol/L (98-107); CREATININE 0.49 mg/dL (0.55-1.02)
[2019-04-20 06:06] LABS: ALKALINE PHOSPHATASE 69 U/L (45-117); BILIRUBIN,TOTAL 0.4 mg/dL (0.2-1.0); TOTAL PROTEIN 5.1 g/dL (6.4-8.2)
[2019-04-20] MEDS: FLUCONAZOLE 200 MG TABLET PO SCH (07:57)
[2019-04-20] MEDS: BISACODYL 10 MG SUPP PR SCH (07:58)
[2019-04-20] MEDS: POTASSIUM CHLORIDE 20 MEQ TAB.ER.PRT PO SCH ×2 (07:58→16:26)
[2019-04-20] MEDS ORDERED: POTASSIUM CHLORIDE 40 MEQ in SODIUM CHLORIDE 0.9% 500 ML IV ONE (08:00)
[2019-04-20 08:25] VITALS: BP 100/67
[2019-04-20 13:53] VITALS: BP 103/72
[2019-04-20] MEDS ORDERED: POLYETHYLENE GLYCOL 17 GM PACKET PO ONE (16:00)
[2019-04-20 18:54] VITALS: BP 104/72
[2019-04-21] MEDS ORDERED: NS + 20MEQ KCL 1,000 ML IV SCH
[2019-04-21 02:08] VITALS: BP 101/68
[2019-04-21] MEDS: DIAZEPAM 5 MG/ML, 2ML IVPush PRN ×3 (03:56→17:46)
[2019-04-21 05:24] LABS: BASOPHILS # (AUTO) 0.02 x10^3/uL (0-0.1); BASOPHILS % (AUTO) 0 % (0-1); EOSINOPHILS # (AUTO) 0.09 x10^3/uL (0-0.4); EOSINOPHILS % (AUTO) 1 % (1-7); LYMPHOCYTES # (AUTO) 1.32 x10^3/uL (1-3.4); LYMPHOCYTES % (AUTO) 10 % (22-44); MD NO; MEAN CORPUSCULAR HEMOGLOBIN 31.5 pg (27.0-34.8); MEAN CORPUSCULAR HGB CONC 32.9 g/dL (32.4-35.8); MEAN CORPUSCULAR VOLUME 95.8 fL (80-100); MONOCYTES # (AUTO) 1.12 x10^3/uL (0.2-0.8); MONOCYTES % (AUTO) 8 % (2-9); NEUTROPHILS # (AUTO) 11.14 x10^3/uL (1.8-6.8); NEUTROPHILS % (AUTO) 81 % (42-75); PLATELET COUNT 920 x10^3/uL (130-400); RED CELL DISTRIBUTION WIDTH 13.4 % (9.6-15.2)
[2019-04-21 05:36] LABS: ALBUMIN 1.7 g/dL (3.4-5.0); ANION GAP 4 mmol/L (5-15); CHLORIDE 103 mmol/L (98-107)
[2019-04-21 05:39] LABS: ALANINE AMINOTRANSFERASE 11 U/L (12-78); ALKALINE PHOSPHATASE 66 U/L (45-117); BILIRUBIN,TOTAL 0.2 mg/dL (0.2-1.0); CREATININE 0.56 mg/dL (0.55-1.02); TOTAL PROTEIN 5.4 g/dL (6.4-8.2)
[2019-04-21] MEDS: PIPERACILLIN/TAZO/PMX 3.375GM 50 ML IV SCH ×3 (05:41→20:36)
[2019-04-21 06:54] VITALS: BP 102/70
[2019-04-21] MEDS ORDERED: POTASSIUM CHLORIDE 40 MEQ in SODIUM CHLORIDE 0.9% 500 ML IV ONE (07:30)
[2019-04-21] MEDS: FLUCONAZOLE 200 MG TABLET PO SCH (08:27)
[2019-04-21] MEDS: OXYcodone/APAP 10/325MG TABLET PO PRN ×4 (08:28→22:32)
[2019-04-21] MEDS: BISACODYL 10 MG SUPP PR SCH (08:29)
[2019-04-21] MEDS: ONDANSETRON 2MG/ML, 2ML IVPush PRN (09:57)
[2019-04-21] MEDS: POTASSIUM CHLORIDE 20 MEQ TAB.ER.PRT PO SCH ×2 (10:47→17:40)
[2019-04-21] MEDS ORDERED: POLYETHYLENE GLYCOL 17 GM PACKET PO PRN (11:30)
[2019-04-21] MEDS ORDERED: OMNIPAQUE 350 MG/ML, 100ML BOTTLE ONE (13:53)
[2019-04-21] MEDS ORDERED: VANCOMYCIN PER PHARMACY MC PRN (15:00)
[2019-04-21 15:08] VITALS: BP 101/70
[2019-04-21] MEDS ORDERED: DEXTROSE 50%, 50ML SYRINGE IVPush PRN (17:00)
[2019-04-21] MEDS ORDERED: TPN PER PHARMACY MC PRN (17:00)
[2019-04-21] MEDS ORDERED: DEXTROSE 10% 500 ML IV PRN (17:00)
[2019-04-21] MEDS ORDERED: SODIUM CHLORIDE 0.9% 1,000 ML IV SCH (17:30)
[2019-04-21] MEDS ORDERED: [UNRECOGNIZED DRUG - OTHER] IV SCH (18:00)
[2019-04-21] MEDS ORDERED: FILTER, DISP 1.2 MICRON FOR TPN/PVN IV PRN (18:00)
[2019-04-21] MEDS ORDERED: SMOF TPN IV SCH (18:00)
[2019-04-21] MEDS ORDERED: AMINO ACID 10% IV SCH (18:00)
[2019-04-21] MEDS ORDERED: POTASSIUM CHLORIDE PMX 100 ML IV ONE (18:00)
[2019-04-21] MEDS ORDERED: FAT EMUL IV SCH (18:00)
[2019-04-21] MEDS ORDERED: DEXTROSE 70% IV SCH (18:00)
[2019-04-21] MEDS ORDERED: POTASSIUM CHLORIDE 20 MEQ in SODIUM CHLORIDE 0.9% 250 ML IV ONE (19:00)
[2019-04-21 20:08] VITALS: BP 92/67
[2019-04-21] MEDS: INSULIN REGULAR MEDIUM DOSE Q6H X 48HRS SQ-INSULIN SCH (21:00)
[2019-04-22] MEDS: DIAZEPAM 5 MG/ML, 2ML IVPush PRN ×2 (00:08→13:53)
[2019-04-22] MEDS: PIPERACILLIN/TAZO/PMX 3.375GM 50 ML IV SCH ×4 (02:09→22:11)
[2019-04-22] MEDS: INSULIN REGULAR MEDIUM DOSE Q6H X 48HRS SQ-INSULIN SCH ×4 (03:00→20:24)
[2019-04-22 03:19] VITALS: BP 97/65
[2019-04-22 07:52] LABS: BASOPHILS # (AUTO) 0.03 x10^3/uL (0-0.1); BASOPHILS % (AUTO) 0 % (0-1); EOSINOPHILS % (AUTO) 1 % (1-7); LYMPHOCYTES # (AUTO) 1.26 x10^3/uL (1-3.4); LYMPHOCYTES % (AUTO) 10 % (22-44); MD NO; MEAN CORPUSCULAR HGB CONC 32.6 g/dL (32.4-35.8); MEAN CORPUSCULAR VOLUME 95.3 fL (80-100); MEAN PLATELET VOLUME 5.7 fL (7.4-10.4); MONOCYTES # (AUTO) 1.07 x10^3/uL (0.2-0.8); MONOCYTES % (AUTO) 8 % (2-9); NEUTROPHILS # (AUTO) 10.23 x10^3/uL (1.8-6.8); NEUTROPHILS % (AUTO) 81 % (42-75); PLATELET COUNT 977 x10^3/uL (130-400); RED BLOOD COUNT 2.93 x10^6/uL (3.82-5.3); RED CELL DISTRIBUTION WIDTH 13.9 % (9.6-15.2)
[2019-04-22 07:56] VITALS: BP 109/78
[2019-04-22] MEDS: POTASSIUM CHLORIDE 20 MEQ TAB.ER.PRT PO SCH ×2 (08:00→16:24)
[2019-04-22 08:01] LABS: ALANINE AMINOTRANSFERASE 12 U/L (12-78); ALBUMIN 1.7 g/dL (3.4-5.0); ANION GAP 4 mmol/L (5-15); CALCIUM 8.3 mg/dL (8.5-10.1); CHLORIDE 109 mmol/L (98-107); CREATININE 0.48 mg/dL (0.55-1.02)
[2019-04-22 08:03] LABS: ALKALINE PHOSPHATASE 64 U/L (45-117); BILIRUBIN,TOTAL 0.2 mg/dL (0.2-1.0); TOTAL PROTEIN 5.6 g/dL (6.4-8.2)
[2019-04-22] MEDS ORDERED: VANCOMYCIN PER PHARMACY MC PRN (08:30)
[2019-04-22] MEDS: FLUCONAZOLE 200 MG TABLET PO SCH (09:00)
[2019-04-22] MEDS ORDERED: VANCOMYCIN PMX 1GM/200ML 200 ML IV SCH (09:00)
[2019-04-22] MEDS ORDERED: KETAMINE 10 MG/ML, 20ML ONE (09:34)
[2019-04-22] MEDS ORDERED: ROCURONIUM 10MG/ML,5ML ONE (09:34)
[2019-04-22] MEDS ORDERED: DEXMEDETOMIDINE 200 MCG/2 ML ONE (09:34)
[2019-04-22] MEDS ORDERED: FENTANYL PF 100 MCG/2ML ONE (09:34)
[2019-04-22] MEDS ORDERED: MIDAZOLAM 1 MG/ML, 5ML ONE (09:34)
[2019-04-22] MEDS ORDERED: PROPOFOL 10 MG/ML, 20ML ONE (09:34)
[2019-04-22] MEDS ORDERED: PHENYLEPHRINE 10 MG/ML ONE (09:34)
[2019-04-22] MEDS ORDERED: THROMBIN 5,000 UNIT VIAL TP ONE (10:22)
[2019-04-22] MEDS ORDERED: SUGAMMADEX 200 MG/2 ML IVPush ONE (10:54)
[2019-04-22] MEDS ORDERED: MEPERIDINE/PF 50 MG/ML ONE (10:59)
[2019-04-22] MEDS ORDERED: HALOPERIDOL 5 MG/ML IV PRN (11:00)
[2019-04-22] MEDS ORDERED: FENTANYL PF 100 MCG/2ML IV PRN (11:00)
[2019-04-22] MEDS ORDERED: ALBUTEROL SULFATE 2.5 MG/3 ML NPPB PRN (11:00)
[2019-04-22] MEDS ORDERED: MEPERIDINE/PF 25MG/ML,1ML IVPush PRN (11:00)
[2019-04-22] MEDS ORDERED: HYDROmorphone 1 MG/ML, 1ML INJ ONE ×2 (11:25→12:04)
[2019-04-22] MEDS: HYDROmorphone 2 MG/ML, 1ML IVPush PRN ×3 (11:25→12:05)
[2019-04-22] MEDS ORDERED: PHARMACOKINETIC CONSULTATION MC ONE (12:00)
[2019-04-22] MEDS ORDERED: PHARMACOKINETIC MONITORING MC PRN (12:00)
[2019-04-22] MEDS: morphine SULFATE 10 MG/ML, 1ML IVPush PRN (12:47)
[2019-04-22] MEDS ORDERED: HYDROmorphone PCA 30 MG/30 ML IV PRN ×2 (13:00→18:30)
[2019-04-22] MEDS: ONDANSETRON 2MG/ML, 2ML IVPush PRN (13:53)
[2019-04-22] MEDS: FLUCONAZOLE 400 MG/200 ML 200 ML IV SCH (13:57)
[2019-04-22] MEDS: VANCOMYCIN PMX 1GM/200ML 200 ML IV SCH (16:56)
[2019-04-22] MEDS ORDERED: FAT EMUL IV SCH (17:00)
[2019-04-22] MEDS ORDERED: DEXTROSE 70% IV SCH (17:00)
[2019-04-22] MEDS ORDERED: [UNRECOGNIZED DRUG - OTHER] IV SCH (17:00)
[2019-04-22] MEDS ORDERED: SMOF TPN IV SCH (17:00)
[2019-04-22] MEDS ORDERED: AMINO ACID 10% IV SCH (17:00)
[2019-04-22] MEDS ORDERED: HYDROmorphone 1 MG/ML, 1ML INJ IV ONE (18:30)
[2019-04-22] MEDS ORDERED: KETOROLAC 30 MG/1 ML IM SCH (19:00)
[2019-04-22] MEDS ORDERED: DEXMEDETOMIDINE 400 MCG in SODIUM CHLORIDE 0.9% 96 ML IV PRN (19:30)
[2019-04-22] MEDS ORDERED: ZIPRASIDONE 20 MG INJ IM PRN (19:30)
[2019-04-22] MEDS: KETOROLAC 30 MG/1 ML IVPush SCH (19:46)
[2019-04-22] MEDS: FILTER, DISP 1.2 MICRON FOR TPN/PVN IV PRN (20:03)
[2019-04-23] MEDS: VANCOMYCIN PMX 1GM/200ML 200 ML IV SCH ×2 (00:32→08:27)
[2019-04-23] MEDS ORDERED: KETOROLAC 30 MG/1 ML IVPush SCH (01:00)
[2019-04-23] MEDS: DIAZEPAM 5 MG/ML, 2ML IVPush PRN ×3 (01:55→22:20)
[2019-04-23] MEDS: KETOROLAC 30 MG/1 ML IVPush SCH ×4 (02:16→20:36)
[2019-04-23] MEDS: INSULIN REGULAR MEDIUM DOSE Q6H X 48HRS SQ-INSULIN SCH ×3 (02:42→15:00)
[2019-04-23] MEDS: PIPERACILLIN/TAZO/PMX 3.375GM 50 ML IV SCH ×4 (04:11→22:15)
[2019-04-23 04:23] LABS: MEAN CORPUSCULAR HEMOGLOBIN 30.9 pg (27.0-34.8); MEAN CORPUSCULAR HGB CONC 32.6 g/dL (32.4-35.8); MEAN CORPUSCULAR VOLUME 94.7 fL (80-100); MEAN PLATELET VOLUME 6.2 fL (7.4-10.4); PLATELET COUNT 848 x10^3/uL (130-400); RED BLOOD COUNT 2.81 x10^6/uL (3.82-5.3); RED CELL DISTRIBUTION WIDTH 13.9 % (9.6-15.2)
[2019-04-23 04:30] LABS: ANION GAP 2 mmol/L (5-15); CALCIUM 7.7 mg/dL (8.5-10.1); CHLORIDE 109 mmol/L (98-107); CREATININE 0.84 mg/dL (0.55-1.02)
[2019-04-23 05:58] LABS: BASOPHILS # (AUTO) 0.02 x10^3/uL (0-0.1); BASOPHILS % (AUTO) 0 % (0-1); EOSINOPHILS # (AUTO) 0.14 x10^3/uL (0-0.4); EOSINOPHILS % (AUTO) 1 % (1-7); LYMPHOCYTES # (AUTO) 1.13 x10^3/uL (1-3.4); LYMPHOCYTES % (AUTO) 5 % (22-44); MD SCAN; MONOCYTES # (AUTO) 1.39 x10^3/uL (0.2-0.8); MONOCYTES % (AUTO) 6 % (2-9); NEUTROPHILS # (AUTO) 19.35 x10^3/uL (1.8-6.8); NEUTROPHILS % (AUTO) 88 % (42-75)
[2019-04-23] MEDS: POTASSIUM CHLORIDE 20 MEQ TAB.ER.PRT PO SCH ×2 (08:00→17:00)
[2019-04-23] MEDS: FLUCONAZOLE 400 MG/200 ML 200 ML IV SCH (13:52)
[2019-04-23] MEDS: HYDROmorphone PCA 30 MG/30 ML IV PRN (14:10)
[2019-04-23] MEDS ORDERED: DEXTROSE 70% IV SCH (17:00)
[2019-04-23] MEDS ORDERED: [UNRECOGNIZED DRUG - OTHER] IV SCH (17:00)
[2019-04-23] MEDS ORDERED: AMINO ACID 10% IV SCH (17:00)
[2019-04-23] MEDS ORDERED: FAT EMUL IV SCH (17:00)
[2019-04-23] MEDS ORDERED: SMOF TPN IV SCH (17:00)
[2019-04-23] MEDS: FILTER, DISP 1.2 MICRON FOR TPN/PVN IV PRN (17:14)
[2019-04-24] MEDS: KETOROLAC 30 MG/1 ML IVPush SCH ×2 (01:16→09:23)
[2019-04-24] MEDS: PIPERACILLIN/TAZO/PMX 3.375GM 50 ML IV SCH ×4 (04:18→22:25)
[2019-04-24] MEDS: DIAZEPAM 5 MG/ML, 2ML IVPush PRN ×5 (04:19→22:35)
[2019-04-24 04:58] LABS: ALBUMIN 1.4 g/dL (3.4-5.0); ANION GAP 3 mmol/L (5-15); CHLORIDE 108 mmol/L (98-107)
[2019-04-24 05:02] LABS: CREATININE 1.19 mg/dL (0.55-1.02)
[2019-04-24 05:03] LABS: ALANINE AMINOTRANSFERASE 9 U/L (12-78); ALKALINE PHOSPHATASE 58 U/L (45-117); BILIRUBIN,TOTAL 0.2 mg/dL (0.2-1.0); VANCOMYCIN,RANDOM 24.2 mcg/mL
[2019-04-24] MEDS: POTASSIUM CHLORIDE 20 MEQ TAB.ER.PRT PO SCH (07:36)
[2019-04-24] MEDS: INSULIN REGULAR MEDIUM DOSE QDAY SQ-INSULIN SCH (09:00)
[2019-04-24] MEDS: HYDROmorphone PCA 30 MG/30 ML IV PRN (14:01)
[2019-04-24] MEDS: FLUCONAZOLE 400 MG/200 ML 200 ML IV SCH (14:01)
[2019-04-24] MEDS ORDERED: SMOF TPN IV SCH (17:00)
[2019-04-24] MEDS ORDERED: FAT EMUL IV SCH (17:00)
[2019-04-24] MEDS ORDERED: AMINO ACID 10% IV SCH (17:00)
[2019-04-24] MEDS ORDERED: DEXTROSE 70% IV SCH (17:00)
[2019-04-24] MEDS ORDERED: [UNRECOGNIZED DRUG - OTHER] IV SCH (17:00)
[2019-04-24] MEDS: FILTER, DISP 1.2 MICRON FOR TPN/PVN IV PRN (17:36)
[2019-04-25] MEDS: PIPERACILLIN/TAZO/PMX 3.375GM 50 ML IV SCH ×4 (04:13→23:14)
[2019-04-25 04:42] LABS: ANION GAP 5 mmol/L (5-15); CALCIUM 8.1 mg/dL (8.5-10.1); CHLORIDE 106 mmol/L (98-107); CREATININE 1.41 mg/dL (0.55-1.02)
[2019-04-25 05:13] LABS: MEAN CORPUSCULAR HEMOGLOBIN 30.7 pg (27.0-34.8); MEAN CORPUSCULAR HGB CONC 32.6 g/dL (32.4-35.8); MEAN CORPUSCULAR VOLUME 94.2 fL (80-100); MEAN PLATELET VOLUME 6.4 fL (7.4-10.4); PLATELET COUNT 641 x10^3/uL (130-400); RED CELL DISTRIBUTION WIDTH 13.6 % (9.6-15.2)
[2019-04-25 05:33] LABS: BASOPHILS # (AUTO) 0.01 x10^3/uL (0-0.1); BASOPHILS % (AUTO) 0 % (0-1); EOSINOPHILS # (AUTO) 0.15 x10^3/uL (0-0.4); EOSINOPHILS % (AUTO) 1 % (1-7); LYMPHOCYTES # (AUTO) 0.96 x10^3/uL (1-3.4); LYMPHOCYTES % (AUTO) 8 % (22-44); MD SCAN; MONOCYTES # (AUTO) 0.87 x10^3/uL (0.2-0.8); MONOCYTES % (AUTO) 7 % (2-9); NEUTROPHILS # (AUTO) 10.81 x10^3/uL (1.8-6.8); NEUTROPHILS % (AUTO) 84 % (42-75)
[2019-04-25] MEDS ORDERED: FENTANYL PF 100 MCG/2ML ONE ×2 (06:46→08:42)
[2019-04-25] MEDS ORDERED: MIDAZOLAM 1 MG/ML, 2ML ONE ×3 (06:46→09:37)
[2019-04-25] MEDS ORDERED: HYDROmorphone 2 MG/ML, 1ML ONE ×4 (07:41→15:33)
[2019-04-25] MEDS ORDERED: KETAMINE 10 MG/ML, 20ML ONE (07:41)
[2019-04-25] MEDS ORDERED: ROCURONIUM 10MG/ML,5ML ONE (08:20)
[2019-04-25] MEDS ORDERED: GLYCOPYRROLATE 0.2MG/1ML, 5ML ONE (08:20)
[2019-04-25] MEDS ORDERED: ONDANSETRON 2MG/ML, 2ML ONE (08:20)
[2019-04-25] MEDS ORDERED: PROPOFOL 10 MG/ML, 20ML ONE (08:20)
[2019-04-25] MEDS ORDERED: NEOSTIGMINE 1 MG/ML, 10ML ONE (08:20)
[2019-04-25] MEDS ORDERED: SUCCINYLCHOLINE 20 MG/ML, 10ML ONE (08:20)
[2019-04-25] MEDS ORDERED: LIDOCAINE-MPF 2% ,5ML ONE (08:21)
[2019-04-25] MEDS: INSULIN REGULAR MEDIUM DOSE QDAY SQ-INSULIN SCH (08:27)
[2019-04-25] MEDS: FENTANYL PF 100 MCG/2ML IV PRN ×2 (08:45→08:50)
[2019-04-25] MEDS: HYDROmorphone 2 MG/ML, 1ML IVPush PRN ×10 (08:45→17:59)
[2019-04-25] MEDS ORDERED: PROMETHAZINE 25 MG/ML, 1ML IV PRN (09:00)
[2019-04-25] MEDS ORDERED: MEPERIDINE/PF 25MG/ML,1ML IVPush PRN (09:00)
[2019-04-25] MEDS: MIDAZOLAM 1 MG/ML, 2ML IV PRN ×4 (09:11→09:44)
[2019-04-25] MEDS: DIAZEPAM 5 MG/ML, 2ML IVPush PRN ×3 (11:04→20:49)
[2019-04-25] MEDS ORDERED: HYDROmorphone 1 MG/ML, 1ML INJ ONE (13:32)
[2019-04-25] MEDS: FLUCONAZOLE 400 MG/200 ML 200 ML IV SCH (13:41)
[2019-04-25] MEDS: HYDROmorphone PCA 30 MG/30 ML IV PRN (13:56)
[2019-04-25] MEDS ORDERED: HYDROmorphone 1 MG/ML, 1ML INJ IV ONE (14:00)
[2019-04-25 16:56] LABS: CREATININE,URINE RANDOM 20.5 mg/dL
[2019-04-25] MEDS ORDERED: DEXTROSE 70% IV SCH (17:00)
[2019-04-25] MEDS ORDERED: [UNRECOGNIZED DRUG - OTHER] IV SCH (17:00)
[2019-04-25] MEDS ORDERED: AMINO ACID 10% IV SCH (17:00)
[2019-04-25] MEDS ORDERED: SMOF TPN IV SCH (17:00)
[2019-04-25] MEDS ORDERED: FAT EMUL IV SCH (17:00)
[2019-04-25] MEDS: FILTER, DISP 1.2 MICRON FOR TPN/PVN IV PRN (17:57)
[2019-04-25] MEDS: ONDANSETRON 2MG/ML, 2ML IVPush PRN (17:58)
[2019-04-26] MEDS: DIAZEPAM 5 MG/ML, 2ML IVPush PRN ×2 (04:53→21:29)
[2019-04-26 05:14] LABS: ANION GAP 5 mmol/L (5-15); CALCIUM 8.5 mg/dL (8.5-10.1); CHLORIDE 108 mmol/L (98-107)
[2019-04-26 05:15] LABS: CREATININE 1.49 mg/dL (0.55-1.02)
[2019-04-26] MEDS: PIPERACILLIN/TAZO/PMX 3.375GM 50 ML IV SCH ×4 (05:19→23:29)
[2019-04-26 06:07] LABS: BASOPHILS # (AUTO) 0.01 x10^3/uL (0-0.1); BASOPHILS % (AUTO) 0 % (0-1); EOSINOPHILS # (AUTO) 0.09 x10^3/uL (0-0.4); EOSINOPHILS % (AUTO) 1 % (1-7); LYMPHOCYTES # (AUTO) 0.93 x10^3/uL (1-3.4); LYMPHOCYTES % (AUTO) 7 % (22-44); MD NO; MEAN CORPUSCULAR HEMOGLOBIN 31.1 pg (27.0-34.8); MEAN CORPUSCULAR HGB CONC 33.3 g/dL (32.4-35.8); MEAN CORPUSCULAR VOLUME 93.6 fL (80-100); MEAN PLATELET VOLUME 6.9 fL (7.4-10.4); MONOCYTES # (AUTO) 1.22 x10^3/uL (0.2-0.8); MONOCYTES % (AUTO) 9 % (2-9); NEUTROPHILS # (AUTO) 11.91 x10^3/uL (1.8-6.8); NEUTROPHILS % (AUTO) 84 % (42-75); PLATELET COUNT 559 x10^3/uL (130-400); RED BLOOD COUNT 3.01 x10^6/uL (3.82-5.3); RED CELL DISTRIBUTION WIDTH 13.7 % (9.6-15.2)
[2019-04-26] MEDS: INSULIN REGULAR MEDIUM DOSE QDAY SQ-INSULIN SCH (09:00)
[2019-04-26] MEDS: HYDROmorphone PCA 30 MG/30 ML IV PRN (12:38)
[2019-04-26] MEDS: FLUCONAZOLE 400 MG/200 ML 200 ML IV SCH (13:43)
--- NOTE | 2019-04-26 14:35 | NUR ---
DC rec. acute rehab. DC rec. could change depending on pt progress Addendum: 04/26/19 at 1436 by Luca Flores PT Amended: Links added.
[2019-04-26] MEDS ORDERED: FAT EMUL IV SCH (17:00)
[2019-04-26] MEDS ORDERED: DEXTROSE 70% IV SCH (17:00)
[2019-04-26] MEDS ORDERED: [UNRECOGNIZED DRUG - OTHER] IV SCH (17:00)
[2019-04-26] MEDS ORDERED: AMINO ACID 10% IV SCH (17:00)
[2019-04-26] MEDS ORDERED: SMOF TPN IV SCH (17:00)
[2019-04-26] MEDS: FILTER, DISP 1.2 MICRON FOR TPN/PVN IV PRN (17:22)
[2019-04-26] MEDS: HYDROmorphone 2 MG/ML, 1ML IVPush PRN (17:34)
[2019-04-26] MEDS: ACETAMINOPHEN 650 MG SUPP PR PRN (22:00)
[2019-04-27] MEDS: PIPERACILLIN/TAZO/PMX 3.375GM 50 ML IV SCH ×3 (05:16→16:03)
[2019-04-27 05:50] LABS: CHLORIDE 106 mmol/L (98-107)
[2019-04-27 05:58] LABS: ANION GAP 6 mmol/L (5-15); CALCIUM 8.4 mg/dL (8.5-10.1); CREATININE 1.43 mg/dL (0.55-1.02); PREALBUMIN 7.3 mg/dL (20.0-40.0)
[2019-04-27] MEDS: ONDANSETRON 2MG/ML, 2ML IVPush PRN ×2 (07:15→12:43)
[2019-04-27] MEDS: INSULIN REGULAR MEDIUM DOSE QDAY SQ-INSULIN SCH (09:00)
[2019-04-27] MEDS: DIAZEPAM 5 MG/ML, 2ML IVPush PRN ×2 (10:07→21:39)
[2019-04-27] MEDS: HYDROmorphone PCA 30 MG/30 ML IV PRN (13:01)
[2019-04-27] MEDS: HYDROmorphone 2 MG/ML, 1ML IVPush PRN (13:09)
[2019-04-27] MEDS: FLUCONAZOLE 400 MG/200 ML 200 ML IV SCH (13:09)
[2019-04-27] MEDS: ACETAMINOPHEN 650 MG SUPP PR PRN (14:03)
[2019-04-27] MEDS ORDERED: FENTANYL PF 250 MCG/5ML ONE ×2 (16:06→17:22)
[2019-04-27] MEDS ORDERED: PROPOFOL 100 ML ONE (16:06)
[2019-04-27] MEDS ORDERED: KETAMINE 10 MG/ML, 20ML ONE (16:23)
[2019-04-27] MEDS ORDERED: HYDROmorphone 2 MG/ML, 1ML ONE (16:24)
[2019-04-27] MEDS ORDERED: BUPIVACAINE/PF 0.5% ONE (16:39)
[2019-04-27] MEDS ORDERED: EPINEPHRINE 1 MG/ML, 1ML ONE (16:39)
[2019-04-27] MEDS ORDERED: BACITRACIN 50,000 UNIT ONE (16:39)
[2019-04-27] MEDS ORDERED: MIDAZOLAM 1 MG/ML, 5ML ONE (16:48)
[2019-04-27] MEDS ORDERED: SUCCINYLCHOLINE 20 MG/ML, 10ML ONE (16:52)
[2019-04-27] MEDS ORDERED: SMOF TPN IV SCH (17:00)
[2019-04-27] MEDS ORDERED: [UNRECOGNIZED DRUG - OTHER] IV SCH (17:00)
[2019-04-27] MEDS ORDERED: DEXTROSE 70% IV SCH (17:00)
[2019-04-27] MEDS ORDERED: AMINO ACID 10% IV SCH (17:00)
[2019-04-27] MEDS ORDERED: FAT EMUL IV SCH (17:00)
[2019-04-27] MEDS ORDERED: DEXAMETHASONE 4 MG/ML, 1ML ONE (17:15)
[2019-04-27] MEDS ORDERED: PROPOFOL 10 MG/ML, 20ML ONE (17:16)
[2019-04-27] MEDS ORDERED: FENTANYL PF 100 MCG/2ML IV PRN (18:00)
[2019-04-27] MEDS ORDERED: OXYcodone 5 MG/5 ML ORAL.SOL UDC PO PRN (18:00)
[2019-04-27] MEDS ORDERED: hydrALAzine 20 MG/ML, 1ML IV PRN (18:00)
[2019-04-27] MEDS ORDERED: DIAZEPAM 5 MG/ML, 2ML IVPush PRN (18:00)
[2019-04-27] MEDS ORDERED: ONDANSETRON 2MG/ML, 2ML IV PRN (18:00)
[2019-04-27] MEDS ORDERED: PROMETHAZINE 25 MG/ML, 1ML IV PRN (18:00)
[2019-04-27] MEDS ORDERED: MEPERIDINE/PF 25MG/ML,1ML IVPush PRN (18:00)
[2019-04-27] MEDS ORDERED: LABETALOL 5MG/ML, 20ML IV PRN (18:00)
[2019-04-27] MEDS ORDERED: HYDROmorphone 1 MG/ML, 1ML INJ ONE ×2 (18:59→19:15)
[2019-04-27] MEDS ORDERED: FENTANYL PF 100 MCG/2ML ONE (18:59)
[2019-04-27] MEDS: HYDROmorphone 1 MG/ML, 1ML INJ IVPush PRN ×4 (19:03→19:22)
[2019-04-27] MEDS ORDERED: MEPERIDINE/PF 25MG/ML,1ML ONE (19:17)
[2019-04-28] MEDS: FILTER, DISP 1.2 MICRON FOR TPN/PVN IV PRN (00:06)
[2019-04-28] MEDS: PIPERACILLIN/TAZO/PMX 3.375GM 50 ML IV SCH ×5 (00:06→23:46)
[2019-04-28 04:18] LABS: BASOPHILS % (AUTO) 0 % (0-1); EOSINOPHILS % (AUTO) 0 % (1-7); LYMPHOCYTES # (AUTO) 0.67 x10^3/uL (1-3.4); LYMPHOCYTES % (AUTO) 6 % (22-44); MD NO; MEAN CORPUSCULAR HEMOGLOBIN 30.7 pg (27.0-34.8); MEAN CORPUSCULAR HGB CONC 32.9 g/dL (32.4-35.8); MEAN CORPUSCULAR VOLUME 93.4 fL (80-100); MEAN PLATELET VOLUME 6.5 fL (7.4-10.4); MONOCYTES # (AUTO) 0.31 x10^3/uL (0.2-0.8); MONOCYTES % (AUTO) 3 % (2-9); NEUTROPHILS # (AUTO) 10.19 x10^3/uL (1.8-6.8); NEUTROPHILS % (AUTO) 91 % (42-75); PLATELET COUNT 491 x10^3/uL (130-400); RED BLOOD COUNT 2.96 x10^6/uL (3.82-5.3); RED CELL DISTRIBUTION WIDTH 13.5 % (9.6-15.2)
[2019-04-28 04:28] LABS: ALANINE AMINOTRANSFERASE 14 U/L (12-78); ALBUMIN 1.2 g/dL (3.4-5.0); ANION GAP 7 mmol/L (5-15); CALCIUM 8.1 mg/dL (8.5-10.1); CHLORIDE 106 mmol/L (98-107)
[2019-04-28 04:31] LABS: ALKALINE PHOSPHATASE 77 U/L (45-117); BILIRUBIN,TOTAL 0.2 mg/dL (0.2-1.0); CREATININE 1.34 mg/dL (0.55-1.02)
[2019-04-28] MEDS: DIAZEPAM 5 MG/ML, 2ML IVPush PRN ×2 (04:34→11:53)
[2019-04-28] MEDS: ONDANSETRON 2MG/ML, 2ML IVPush PRN ×2 (06:08→16:07)
[2019-04-28] MEDS: INSULIN REGULAR MEDIUM DOSE QDAY SQ-INSULIN SCH (09:00)
[2019-04-28] MEDS: FLUCONAZOLE 400 MG/200 ML 200 ML IV SCH (13:10)
[2019-04-28] MEDS ORDERED: SMOF TPN IV SCH (17:00)
[2019-04-28] MEDS ORDERED: FAT EMUL IV SCH (17:00)
[2019-04-28] MEDS ORDERED: FILTER, DISP 1.2 MICRON FOR TPN/PVN IV PRN (17:00)
[2019-04-28] MEDS ORDERED: AMINO ACID 10% IV SCH (17:00)
[2019-04-28] MEDS ORDERED: [UNRECOGNIZED DRUG - OTHER] IV SCH (17:00)
[2019-04-28] MEDS ORDERED: DEXTROSE 70% IV SCH (17:00)
[2019-04-28] MEDS: HYDROmorphone 2 MG/ML, 1ML IVPush PRN (17:40)
[2019-04-28] MEDS ORDERED: METHOCARBAMOL 750 MG in DEXTROSE 5% 100 ML IV PRN (19:00)
[2019-04-29] MEDS: ONDANSETRON 2MG/ML, 2ML IVPush PRN ×2 (00:08→06:40)
[2019-04-29 01:10] VITALS: BP 138/90
[2019-04-29] MEDS: DIAZEPAM 5 MG/ML, 2ML IVPush PRN ×4 (03:45→21:33)
[2019-04-29] MEDS: HYDROmorphone PCA 30 MG/30 ML IV PRN (05:23)
[2019-04-29] MEDS: PIPERACILLIN/TAZO/PMX 3.375GM 50 ML IV SCH ×3 (05:46→20:19)
[2019-04-29 06:16] LABS: ANION GAP 8 mmol/L (5-15); CALCIUM 7.8 mg/dL (8.5-10.1); CHLORIDE 106 mmol/L (98-107)
[2019-04-29 06:18] LABS: CREATININE 1.33 mg/dL (0.55-1.02)
[2019-04-29] MEDS ORDERED: INSULIN REGULAR MEDIUM DOSE QDAY SQ-INSULIN SCH (07:02)
[2019-04-29] MEDS: ACETAMINOPHEN 650 MG SUPP PR PRN ×2 (10:18→21:40)
[2019-04-29 11:37] VITALS: BP 122/82
[2019-04-29] MEDS: FLUCONAZOLE 400 MG/200 ML 200 ML IV SCH (13:50)
[2019-04-29 15:20] LABS: BASOPHILS # (AUTO) 0.01 x10^3/uL (0-0.1); BASOPHILS % (AUTO) 0 % (0-1); EOSINOPHILS # (AUTO) 0.07 x10^3/uL (0-0.4); EOSINOPHILS % (AUTO) 1 % (1-7); LYMPHOCYTES # (AUTO) 0.93 x10^3/uL (1-3.4); LYMPHOCYTES % (AUTO) 18 % (22-44); MEAN CORPUSCULAR HEMOGLOBIN 30.7 pg (27.0-34.8); MEAN CORPUSCULAR VOLUME 92.8 fL (80-100); MEAN PLATELET VOLUME 6.2 fL (7.4-10.4); MONOCYTES # (AUTO) 0.31 x10^3/uL (0.2-0.8); MONOCYTES % (AUTO) 6 % (2-9); NEUTROPHILS # (AUTO) 3.76 x10^3/uL (1.8-6.8); NEUTROPHILS % (AUTO) 74 % (42-75); PLATELET COUNT 487 x10^3/uL (130-400); RED BLOOD COUNT 2.89 x10^6/uL (3.82-5.3); RED CELL DISTRIBUTION WIDTH 14.1 % (9.6-15.2)
[2019-04-29 15:21] LABS: MD NO
[2019-04-29] MEDS ORDERED: POTASSIUM CHLORIDE PMX 100 ML IV ONE (16:00)
[2019-04-29] MEDS ORDERED: AMINO ACID 10% IV SCH (17:00)
[2019-04-29] MEDS ORDERED: SMOF TPN IV SCH (17:00)
[2019-04-29] MEDS ORDERED: [UNRECOGNIZED DRUG - OTHER] IV SCH (17:00)
[2019-04-29] MEDS ORDERED: DEXTROSE 70% IV SCH (17:00)
[2019-04-29] MEDS ORDERED: FAT EMUL IV SCH (17:00)
[2019-04-29] MEDS: FILTER, DISP 1.2 MICRON FOR TPN/PVN IV PRN (17:02)
[2019-04-29 20:00] VITALS: BP 131/92
[2019-04-30 00:36] VITALS: BP 118/82
[2019-04-30] MEDS: DIAZEPAM 5 MG/ML, 2ML IVPush PRN ×3 (03:30→20:39)
[2019-04-30] MEDS: PIPERACILLIN/TAZO/PMX 3.375GM 50 ML IV SCH ×4 (03:33→22:40)
[2019-04-30] MEDS ORDERED: LACTATED RINGERS 1,000 ML IV ONE (04:00)
[2019-04-30 04:14] LABS: BASOPHILS # (AUTO) 0.02 x10^3/uL (0-0.1); BASOPHILS % (AUTO) 0 % (0-1); EOSINOPHILS # (AUTO) 0.08 x10^3/uL (0-0.4); EOSINOPHILS % (AUTO) 2 % (1-7); LYMPHOCYTES # (AUTO) 0.86 x10^3/uL (1-3.4); LYMPHOCYTES % (AUTO) 18 % (22-44); MD NO; MEAN CORPUSCULAR HGB CONC 33.7 g/dL (32.4-35.8); MEAN CORPUSCULAR VOLUME 92.2 fL (80-100); MEAN PLATELET VOLUME 6.9 fL (7.4-10.4); MONOCYTES % (AUTO) 7 % (2-9); NEUTROPHILS # (AUTO) 3.45 x10^3/uL (1.8-6.8); NEUTROPHILS % (AUTO) 73 % (42-75); PLATELET COUNT 509 x10^3/uL (130-400); RED BLOOD COUNT 2.85 x10^6/uL (3.82-5.3); RED CELL DISTRIBUTION WIDTH 13.6 % (9.6-15.2)
[2019-04-30 04:22] LABS: ANION GAP 5 mmol/L (5-15); CALCIUM 7.9 mg/dL (8.5-10.1); CHLORIDE 107 mmol/L (98-107); CREATININE 1.19 mg/dL (0.55-1.02)
[2019-04-30 04:23] LABS: ALANINE AMINOTRANSFERASE 56 U/L (12-78); ALBUMIN 1.4 g/dL (3.4-5.0)
[2019-04-30 04:25] LABS: ALKALINE PHOSPHATASE 104 U/L (45-117); BILIRUBIN,TOTAL 0.2 mg/dL (0.2-1.0); TOTAL PROTEIN 5.2 g/dL (6.4-8.2)
[2019-04-30] MEDS: HYDROmorphone PCA 30 MG/30 ML IV PRN (06:33)
[2019-04-30 07:58] VITALS: BP 119/83
[2019-04-30] MEDS: ACETAMINOPHEN 650 MG SUPP PR PRN ×2 (08:33→18:21)
[2019-04-30] MEDS: INSULIN REGULAR MEDIUM DOSE QDAY SQ-INSULIN SCH (09:00)
[2019-04-30 10:57] LABS: CLOSTRIDIUM DIFFICILE ANTIGEN NEGATIVE; CLOSTRIDIUM DIFFICILE TOXIN NEGATIVE (Negative)
[2019-04-30] MEDS: FLUCONAZOLE 400 MG/200 ML 200 ML IV SCH (13:44)
[2019-04-30] MEDS ORDERED: AMINO ACID 10% IV SCH (17:00)
[2019-04-30] MEDS ORDERED: FAT EMUL IV SCH (17:00)
[2019-04-30] MEDS ORDERED: SMOF TPN IV SCH (17:00)
[2019-04-30] MEDS ORDERED: [UNRECOGNIZED DRUG - OTHER] IV SCH (17:00)
[2019-04-30] MEDS ORDERED: DEXTROSE 70% IV SCH (17:00)
[2019-04-30] MEDS: FILTER, DISP 1.2 MICRON FOR TPN/PVN IV PRN (17:33)
[2019-04-30] MEDS ORDERED: OMNIPAQUE 350 MG/ML, 100ML BOTTLE ONE (18:01)
[2019-04-30] MEDS: ONDANSETRON 2MG/ML, 2ML IVPush PRN (19:12)
[2019-04-30 20:20] VITALS: BP 117/83
[2019-05-01 01:40] VITALS: BP 108/75
[2019-05-01] MEDS: DIAZEPAM 5 MG/ML, 2ML IVPush PRN ×3 (01:42→20:01)
[2019-05-01] MEDS: PIPERACILLIN/TAZO/PMX 3.375GM 50 ML IV SCH ×3 (04:55→20:01)
[2019-05-01 06:05] LABS: HCT (SEDRATE) 26.3 % (34.6-47.8)
[2019-05-01 06:12] LABS: BASOPHILS # (AUTO) 0.02 x10^3/uL (0-0.1); BASOPHILS % (AUTO) 0 % (0-1); EOSINOPHILS # (AUTO) 0.01 x10^3/uL (0-0.4); EOSINOPHILS % (AUTO) 0 % (1-7); LYMPHOCYTES # (AUTO) 0.89 x10^3/uL (1-3.4); LYMPHOCYTES % (AUTO) 16 % (22-44); MD NO; MEAN CORPUSCULAR HGB CONC 33.6 g/dL (32.4-35.8); MEAN CORPUSCULAR VOLUME 92.2 fL (80-100); MEAN PLATELET VOLUME 7.1 fL (7.4-10.4); MONOCYTES # (AUTO) 0.33 x10^3/uL (0.2-0.8); MONOCYTES % (AUTO) 6 % (2-9); NEUTROPHILS # (AUTO) 4.41 x10^3/uL (1.8-6.8); NEUTROPHILS % (AUTO) 78 % (42-75); PLATELET COUNT 361 x10^3/uL (130-400); RED BLOOD COUNT 2.84 x10^6/uL (3.82-5.3)
[2019-05-01 06:21] LABS: ALANINE AMINOTRANSFERASE 71 U/L (12-78); ALBUMIN 1.5 g/dL (3.4-5.0); ANION GAP 8 mmol/L (5-15); CHLORIDE 105 mmol/L (98-107); CREATININE 1.13 mg/dL (0.55-1.02)
[2019-05-01 06:31] LABS: ALKALINE PHOSPHATASE 110 U/L (45-117); BILIRUBIN,TOTAL 0.2 mg/dL (0.2-1.0); PREALBUMIN 16.8 mg/dL (20.0-40.0); TOTAL PROTEIN 5.8 g/dL (6.4-8.2); TRIGLYCERIDES 256 mg/dL (50-200)
[2019-05-01 06:55] VITALS: BP 111/79
[2019-05-01] MEDS: OXYcodone 5 MG/5 ML ORAL.SOL UDC PO PRN ×4 (08:17→20:01)
[2019-05-01] MEDS: INSULIN REGULAR MEDIUM DOSE QDAY SQ-INSULIN SCH (08:17)
[2019-05-01] MEDS ORDERED: ONDANSETRON ODT 4 MG ONE ×2 (08:40→18:30)
[2019-05-01] MEDS: ONDANSETRON 2MG/ML, 2ML IVPush PRN ×4 (08:43→21:00)
[2019-05-01] MEDS: HYDROmorphone 1 MG/ML, 1ML INJ IVPush PRN (12:24)
[2019-05-01] MEDS ORDERED: ONDANSETRON 4 MG TABLET ONE (12:45)
[2019-05-01] MEDS ORDERED: HYDROCORTISONE CRM 2.5%, 20GM TP PRN (13:00)
[2019-05-01] MEDS: HYDROmorphone 2 MG/ML, 1ML IVPush PRN (16:08)
[2019-05-01] MEDS ORDERED: DEXTROSE 70% IV SCH (17:00)
[2019-05-01] MEDS ORDERED: AMINO ACID 10% IV SCH (17:00)
[2019-05-01] MEDS ORDERED: [UNRECOGNIZED DRUG - OTHER] IV SCH (17:00)
[2019-05-01] MEDS ORDERED: SMOF TPN IV SCH (17:00)
[2019-05-01] MEDS ORDERED: FAT EMUL IV SCH (17:00)
[2019-05-01] MEDS: FLUCONAZOLE 400 MG/200 ML 200 ML IV SCH (17:18)
[2019-05-01] MEDS: FILTER, DISP 1.2 MICRON FOR TPN/PVN IV PRN (18:15)
[2019-05-01 19:28] VITALS: BP 96/58
[2019-05-02] VITALS (7 sets, daily range): BP systolic 93–112; BP diastolic 58–78
[2019-05-02] MEDS: DIAZEPAM 5 MG/ML, 2ML IVPush PRN ×2 (00:17→20:23)
[2019-05-02] MEDS: ONDANSETRON 2MG/ML, 2ML IVPush PRN ×4 (01:29→18:45)
[2019-05-02] MEDS: OXYcodone 5 MG/5 ML ORAL.SOL UDC PO PRN ×6 (01:30→21:21)
[2019-05-02] MEDS: PIPERACILLIN/TAZO/PMX 3.375GM 50 ML IV SCH ×4 (01:30→20:23)
[2019-05-02] MEDS: ACETAMINOPHEN 650 MG SUPP PR PRN ×2 (01:44→13:17)
[2019-05-02] MEDS: HYDROmorphone PCA 30 MG/30 ML IV PRN (01:44)
[2019-05-02 05:39] LABS: BASOPHILS # (AUTO) 0.02 x10^3/uL (0-0.1); BASOPHILS % (AUTO) 1 % (0-1); EOSINOPHILS # (AUTO) 0.11 x10^3/uL (0-0.4); EOSINOPHILS % (AUTO) 3 % (1-7); LYMPHOCYTES # (AUTO) 0.68 x10^3/uL (1-3.4); LYMPHOCYTES % (AUTO) 15 % (22-44); MD NO; MEAN CORPUSCULAR HEMOGLOBIN 30.7 pg (27.0-34.8); MEAN CORPUSCULAR HGB CONC 33.5 g/dL (32.4-35.8); MEAN CORPUSCULAR VOLUME 91.6 fL (80-100); MEAN PLATELET VOLUME 7.7 fL (7.4-10.4); MONOCYTES # (AUTO) 0.16 x10^3/uL (0.2-0.8); MONOCYTES % (AUTO) 4 % (2-9); NEUTROPHILS % (AUTO) 78 % (42-75); PLATELET COUNT 341 x10^3/uL (130-400); RED BLOOD COUNT 2.74 x10^6/uL (3.82-5.3); RED CELL DISTRIBUTION WIDTH 13.6 % (9.6-15.2)
[2019-05-02 05:50] LABS: ANION GAP 10 mmol/L (5-15); CALCIUM 7.9 mg/dL (8.5-10.1); CHLORIDE 101 mmol/L (98-107); CREATININE 1.22 mg/dL (0.55-1.02)
[2019-05-02] MEDS: INSULIN REGULAR MEDIUM DOSE QDAY SQ-INSULIN SCH (07:29)
[2019-05-02] MEDS ORDERED: ONDANSETRON 4 MG TABLET ONE (12:07)
[2019-05-02] MEDS ORDERED: SMOF TPN IV SCH (17:00)
[2019-05-02] MEDS ORDERED: FAT EMUL IV SCH (17:00)
[2019-05-02] MEDS ORDERED: [UNRECOGNIZED DRUG - OTHER] IV SCH (17:00)
[2019-05-02] MEDS ORDERED: AMINO ACID 10% IV SCH (17:00)
[2019-05-02] MEDS ORDERED: DEXTROSE 70% IV SCH (17:00)
[2019-05-02] MEDS: FLUCONAZOLE 400 MG/200 ML 200 ML IV SCH (17:08)
[2019-05-02] MEDS: FILTER, DISP 1.2 MICRON FOR TPN/PVN IV PRN (17:12)
[2019-05-03] MEDS: PIPERACILLIN/TAZO/PMX 3.375GM 50 ML IV SCH ×2 (02:15→08:04)
[2019-05-03] MEDS: ONDANSETRON 2MG/ML, 2ML IVPush PRN (03:10)
[2019-05-03] MEDS: OXYcodone 5 MG/5 ML ORAL.SOL UDC PO PRN ×6 (03:10→23:00)
[2019-05-03] MEDS: DIAZEPAM 5 MG/ML, 2ML IVPush PRN ×2 (03:10→10:12)
[2019-05-03 04:31] VITALS: BP 109/52
[2019-05-03 06:53] VITALS: BP 109/79
[2019-05-03 07:32] LABS: ANION GAP 8 mmol/L (5-15); CALCIUM 8.2 mg/dL (8.5-10.1); CHLORIDE 103 mmol/L (98-107); CREATININE 1.12 mg/dL (0.55-1.02)
[2019-05-03 07:40] LABS: BASOPHILS # (AUTO) 0.03 x10^3/uL (0-0.1); BASOPHILS % (AUTO) 1 % (0-1); EOSINOPHILS # (AUTO) 0.09 x10^3/uL (0-0.4); EOSINOPHILS % (AUTO) 2 % (1-7); LYMPHOCYTES # (AUTO) 0.65 x10^3/uL (1-3.4); LYMPHOCYTES % (AUTO) 15 % (22-44); MD NO; MEAN CORPUSCULAR HEMOGLOBIN 30.5 pg (27.0-34.8); MEAN CORPUSCULAR HGB CONC 33.2 g/dL (32.4-35.8); MEAN PLATELET VOLUME 8.1 fL (7.4-10.4); MONOCYTES # (AUTO) 0.13 x10^3/uL (0.2-0.8); MONOCYTES % (AUTO) 3 % (2-9); NEUTROPHILS # (AUTO) 3.51 x10^3/uL (1.8-6.8); NEUTROPHILS % (AUTO) 80 % (42-75); PLATELET COUNT 349 x10^3/uL (130-400); RED BLOOD COUNT 2.89 x10^6/uL (3.82-5.3); RED CELL DISTRIBUTION WIDTH 13.9 % (9.6-15.2)
[2019-05-03] MEDS: INSULIN REGULAR MEDIUM DOSE QDAY SQ-INSULIN SCH (09:00)
[2019-05-03] MEDS: FLUOXETINE HCL 20 MG CAPSULE PO SCH (11:19)
[2019-05-03] MEDS ORDERED: METHOCARBAMOL 750 MG TABLET PO PRN (11:30)
[2019-05-03] MEDS: AMPICILLIN/SULBACTAM 3 GM in SODIUM CHLORIDE 0.9% 100 ML IV SCH ×3 (12:23→23:58)
[2019-05-03] MEDS: LITHIUM CARBONATE 300 MG CAPSULE PO SCH (12:24)
[2019-05-03 13:40] VITALS: BP 112/77
[2019-05-03] MEDS: ACETAMINOPHEN 650 MG SUPP PR PRN (16:16)
[2019-05-03] MEDS: GABAPENTIN 300 MG CAPSULE PO SCH ×2 (16:16→20:11)
[2019-05-03] MEDS ORDERED: FAT EMUL IV SCH ×2 (17:00→18:34)
[2019-05-03] MEDS ORDERED: SMOF TPN IV SCH ×2 (17:00→18:34)
[2019-05-03] MEDS ORDERED: [UNRECOGNIZED DRUG - OTHER] IV SCH ×2 (17:00→18:34)
[2019-05-03] MEDS ORDERED: AMINO ACID 10% IV SCH ×2 (17:00→18:34)
[2019-05-03] MEDS ORDERED: DEXTROSE 70% IV SCH ×2 (17:00→18:34)
[2019-05-03] MEDS: FILTER, DISP 1.2 MICRON FOR TPN/PVN IV PRN (17:29)
[2019-05-03] MEDS: FLUCONAZOLE 400 MG/200 ML 200 ML IV SCH (18:22)
[2019-05-03] MEDS: CARBAMAZEPINE 200 MG TABLET PO SCH (20:11)
[2019-05-03] MEDS: BUSPIRONE 5 MG TABLET PO SCH (20:12)
[2019-05-03 20:27] VITALS: BP 95/65
[2019-05-03] MEDS: ATOMOXETINE 25 MG HOMEMEDPO SCH (21:00)
[2019-05-04] VITALS (14 sets, daily range): BP systolic 89–119; BP diastolic 59–81
[2019-05-04] MEDS: ONDANSETRON 2MG/ML, 2ML IVPush PRN (01:28)
[2019-05-04] MEDS: OXYcodone 5 MG/5 ML ORAL.SOL UDC PO PRN ×4 (03:19→19:51)
[2019-05-04] MEDS: AMPICILLIN/SULBACTAM 3 GM in SODIUM CHLORIDE 0.9% 100 ML IV SCH ×3 (05:51→19:03)
[2019-05-04] MEDS: INSULIN REGULAR MEDIUM DOSE QDAY SQ-INSULIN SCH (07:45)
[2019-05-04] MEDS: ATOMOXETINE 25 MG HOMEMEDPO SCH ×2 (09:00→20:04)
[2019-05-04] MEDS: CARBAMAZEPINE 200 MG TABLET PO SCH ×2 (09:41→20:04)
[2019-05-04] MEDS: FLUOXETINE HCL 20 MG CAPSULE PO SCH (09:41)
[2019-05-04] MEDS: GABAPENTIN 300 MG CAPSULE PO SCH ×3 (09:42→20:03)
[2019-05-04] MEDS: BUSPIRONE 5 MG TABLET PO SCH ×2 (13:19→20:04)
[2019-05-04] MEDS ORDERED: AMINO ACID 10% IV SCH (17:00)
[2019-05-04] MEDS ORDERED: DEXTROSE 70% IV SCH (17:00)
[2019-05-04] MEDS ORDERED: [UNRECOGNIZED DRUG - OTHER] IV SCH (17:00)
[2019-05-04] MEDS ORDERED: FAT EMUL IV SCH (17:00)
[2019-05-04] MEDS ORDERED: SMOF TPN IV SCH (17:00)
[2019-05-04] MEDS: FILTER, DISP 1.2 MICRON FOR TPN/PVN IV PRN (17:44)
--- NOTE | 2019-05-04 18:54 | NUR ---
RADHA NICK Fall Risk Medications present and NOT receiving anticoagulants. Signed: 05/04/19 at 1855 by Wero DE LEON
[2019-05-04] MEDS: LITHIUM CARBONATE 300 MG CAPSULE PO SCH (20:03)
[2019-05-04] MEDS: FLUCONAZOLE 400 MG/200 ML 200 ML IV SCH ×2 (20:04→20:51)
[2019-05-04] MEDS: DIAZEPAM 5 MG/ML, 2ML IVPush PRN (20:26)
[2019-05-05] MEDS: AMPICILLIN/SULBACTAM 3 GM in SODIUM CHLORIDE 0.9% 100 ML IV SCH ×4 (01:53→20:28)
[2019-05-05 02:09] VITALS: BP 109/73
[2019-05-05] MEDS: OXYcodone 5 MG/5 ML ORAL.SOL UDC PO PRN ×2 (03:35→07:46)
[2019-05-05 06:19] LABS: BASOPHILS # (AUTO) 0.03 x10^3/uL (0-0.1); BASOPHILS % (AUTO) 1 % (0-1); EOSINOPHILS # (AUTO) 0.32 x10^3/uL (0-0.4); EOSINOPHILS % (AUTO) 6 % (1-7); LYMPHOCYTES # (AUTO) 1.12 x10^3/uL (1-3.4); LYMPHOCYTES % (AUTO) 19 % (22-44); MD NO; MEAN CORPUSCULAR HGB CONC 33.7 g/dL (32.4-35.8); MEAN CORPUSCULAR VOLUME 91.9 fL (80-100); MEAN PLATELET VOLUME 8.2 fL (7.4-10.4); MONOCYTES # (AUTO) 0.51 x10^3/uL (0.2-0.8); MONOCYTES % (AUTO) 9 % (2-9); NEUTROPHILS # (AUTO) 3.86 x10^3/uL (1.8-6.8); NEUTROPHILS % (AUTO) 66 % (42-75); PLATELET COUNT 444 x10^3/uL (130-400); RED BLOOD COUNT 2.86 x10^6/uL (3.82-5.3); RED CELL DISTRIBUTION WIDTH 14.3 % (9.6-15.2)
[2019-05-05 06:24] LABS: ALBUMIN 1.8 g/dL (3.4-5.0); ANION GAP 5 mmol/L (5-15); CALCIUM 8.2 mg/dL (8.5-10.1); CHLORIDE 114 mmol/L (98-107)
[2019-05-05 06:29] LABS: ALANINE AMINOTRANSFERASE 96 U/L (12-78); ALKALINE PHOSPHATASE 123 U/L (45-117); BILIRUBIN,TOTAL 0.3 mg/dL (0.2-1.0); CREATININE 0.71 mg/dL (0.55-1.02); TOTAL PROTEIN 6.3 g/dL (6.4-8.2)
[2019-05-05] MEDS: FLUOXETINE HCL 20 MG CAPSULE PO SCH (07:47)
[2019-05-05] MEDS: BUSPIRONE 5 MG TABLET PO SCH ×2 (07:47→20:25)
[2019-05-05] MEDS: GABAPENTIN 300 MG CAPSULE PO SCH ×3 (07:47→20:24)
[2019-05-05] MEDS: CARBAMAZEPINE 200 MG TABLET PO SCH ×2 (07:48→20:25)
[2019-05-05 07:56] VITALS: BP 94/70
[2019-05-05] MEDS: ATOMOXETINE 25 MG HOMEMEDPO SCH ×2 (09:00→20:29)
[2019-05-05] MEDS: INSULIN REGULAR MEDIUM DOSE QDAY SQ-INSULIN SCH (09:00)
[2019-05-05 12:18] VITALS: BP 117/77
[2019-05-05] MEDS: OXYcodone IR 5MG TABLET PO PRN ×2 (14:37→20:24)
[2019-05-05] MEDS ORDERED: SMOF TPN IV SCH (17:00)
[2019-05-05] MEDS ORDERED: FAT EMUL IV SCH (17:00)
[2019-05-05] MEDS ORDERED: AMINO ACID 10% IV SCH (17:00)
[2019-05-05] MEDS ORDERED: DEXTROSE 70% IV SCH (17:00)
[2019-05-05] MEDS ORDERED: [UNRECOGNIZED DRUG - OTHER] IV SCH (17:00)
[2019-05-05] MEDS: FILTER, DISP 1.2 MICRON FOR TPN/PVN IV PRN (17:38)
[2019-05-05] MEDS: ONDANSETRON 2MG/ML, 2ML IVPush PRN (19:36)
[2019-05-05 20:11] VITALS: BP 90/65
[2019-05-05] MEDS: LITHIUM CARBONATE 300 MG CAPSULE PO SCH (20:24)
[2019-05-05] MEDS: FLUCONAZOLE 400 MG/200 ML 200 ML IV SCH (21:45)
[2019-05-06] MEDS: OXYcodone IR 5MG TABLET PO PRN ×3 (00:45→22:20)
[2019-05-06] MEDS: AMPICILLIN/SULBACTAM 3 GM in SODIUM CHLORIDE 0.9% 100 ML IV SCH ×4 (02:09→20:55)
[2019-05-06 02:25] VITALS: BP 117/79
[2019-05-06 05:09] LABS: ANION GAP 7 mmol/L (5-15); CALCIUM 8.3 mg/dL (8.5-10.1); CHLORIDE 114 mmol/L (98-107)
[2019-05-06 05:11] LABS: CREATININE 0.67 mg/dL (0.55-1.02)
[2019-05-06] MEDS: INSULIN REGULAR MEDIUM DOSE QDAY SQ-INSULIN SCH (08:01)
[2019-05-06 08:31] VITALS: BP 111/82
[2019-05-06] MEDS: ATOMOXETINE 25 MG HOMEMEDPO SCH ×2 (08:37→22:18)
[2019-05-06] MEDS: LITHIUM CARBONATE 300 MG CAPSULE PO SCH ×2 (08:38→22:19)
[2019-05-06] MEDS: GABAPENTIN 300 MG CAPSULE PO SCH ×3 (08:38→22:19)
[2019-05-06] MEDS: CARBAMAZEPINE 200 MG TABLET PO SCH ×2 (08:39→22:19)
[2019-05-06] MEDS: FLUOXETINE HCL 20 MG CAPSULE PO SCH (08:39)
[2019-05-06] MEDS: BUSPIRONE 5 MG TABLET PO SCH ×2 (08:40→22:18)
[2019-05-06] MEDS: ONDANSETRON ODT 4 MG PO PRN ×3 (13:13→22:28)
[2019-05-06 15:22] VITALS: BP 108/76
[2019-05-06] MEDS ORDERED: DEXTROSE 70% IV SCH ×2 (17:00)
[2019-05-06] MEDS ORDERED: [UNRECOGNIZED DRUG - OTHER] IV SCH (17:00)
[2019-05-06] MEDS ORDERED: FAT EMUL IV SCH ×2 (17:00)
[2019-05-06] MEDS ORDERED: AMINO ACID 10% IV SCH ×2 (17:00)
[2019-05-06] MEDS ORDERED: [UNRECOGNIZED DRUG - OTHER] IV SCH (17:00)
[2019-05-06] MEDS ORDERED: SMOF TPN IV SCH ×2 (17:00)
[2019-05-06] MEDS: FILTER, DISP 1.2 MICRON FOR TPN/PVN IV PRN (17:53)
[2019-05-06 21:05] VITALS: BP 110/73
[2019-05-06] MEDS: FLUCONAZOLE 400 MG/200 ML 200 ML IV SCH (22:18)
[2019-05-07] MEDS: AMPICILLIN/SULBACTAM 3 GM in SODIUM CHLORIDE 0.9% 100 ML IV SCH ×4 (03:47→22:40)
[2019-05-07 03:55] VITALS: BP 104/74
[2019-05-07] MEDS: OXYcodone IR 5MG TABLET PO PRN ×4 (04:32→21:13)
[2019-05-07] MEDS: ONDANSETRON ODT 4 MG PO PRN ×2 (04:36→19:59)
[2019-05-07 07:10] VITALS: BP 97/51
[2019-05-07] MEDS: CARBAMAZEPINE 200 MG TABLET PO SCH ×2 (08:31→21:11)
[2019-05-07] MEDS: BUSPIRONE 5 MG TABLET PO SCH ×2 (08:31→21:12)
[2019-05-07] MEDS: FLUOXETINE HCL 20 MG CAPSULE PO SCH (08:31)
[2019-05-07] MEDS: GABAPENTIN 300 MG CAPSULE PO SCH ×3 (08:32→21:12)
[2019-05-07] MEDS: ATOMOXETINE 25 MG HOMEMEDPO SCH ×2 (08:32→21:00)
[2019-05-07] MEDS: INSULIN REGULAR MEDIUM DOSE QDAY SQ-INSULIN SCH (09:00)
[2019-05-07] MEDS: FLUCONAZOLE 200 MG TABLET PO SCH (11:54)
[2019-05-07 13:57] VITALS: BP 102/69
[2019-05-07] MEDS ORDERED: [UNRECOGNIZED DRUG - OTHER] IV SCH (17:00)
[2019-05-07] MEDS ORDERED: FAT EMUL IV SCH (17:00)
[2019-05-07] MEDS ORDERED: DEXTROSE 70% IV SCH (17:00)
[2019-05-07] MEDS ORDERED: AMINO ACID 10% IV SCH (17:00)
[2019-05-07] MEDS ORDERED: SMOF TPN IV SCH (17:00)
[2019-05-07] MEDS: FILTER, DISP 1.2 MICRON FOR TPN/PVN IV PRN (18:10)
[2019-05-07 20:10] VITALS: BP 113/72
[2019-05-07] MEDS: LITHIUM CARBONATE 300 MG CAPSULE PO SCH (21:12)
[2019-05-08] MEDS: OXYcodone IR 5MG TABLET PO PRN ×5 (00:49→21:41)
[2019-05-08 02:33] VITALS: BP 107/69
[2019-05-08] MEDS: AMPICILLIN/SULBACTAM 3 GM in SODIUM CHLORIDE 0.9% 100 ML IV SCH ×2 (04:38→10:25)
[2019-05-08 05:50] LABS: ALANINE AMINOTRANSFERASE 121 U/L (12-78); ALBUMIN 2.2 g/dL (3.4-5.0); ANION GAP 7 mmol/L (5-15); CALCIUM 9.4 mg/dL (8.5-10.1); CHLORIDE 105 mmol/L (98-107); CREATININE 0.89 mg/dL (0.55-1.02)
[2019-05-08 06:01] LABS: MEAN CORPUSCULAR HEMOGLOBIN 30.1 pg (27.0-34.8); MEAN CORPUSCULAR HGB CONC 33.2 g/dL (32.4-35.8); MEAN CORPUSCULAR VOLUME 90.7 fL (80-100); MEAN PLATELET VOLUME 7.5 fL (7.4-10.4); PLATELET COUNT 659 x10^3/uL (130-400); RED BLOOD COUNT 3.41 x10^6/uL (3.82-5.3); RED CELL DISTRIBUTION WIDTH 14.4 % (9.6-15.2)
[2019-05-08 06:02] LABS: ALKALINE PHOSPHATASE 254 U/L (45-117); BILIRUBIN,TOTAL 0.3 mg/dL (0.2-1.0); PREALBUMIN 35.9 mg/dL (20.0-40.0); TOTAL PROTEIN 7.2 g/dL (6.4-8.2)
[2019-05-08 06:28] LABS: BASOPHILS # (AUTO) 0.01 x10^3/uL (0-0.1); BASOPHILS % (AUTO) 0 % (0-1); EOSINOPHILS # (AUTO) 1.52 x10^3/uL (0-0.4); EOSINOPHILS % (AUTO) 8 % (1-7); LYMPHOCYTES # (AUTO) 1.13 x10^3/uL (1-3.4); LYMPHOCYTES % (AUTO) 6 % (22-44); MD SCAN; MONOCYTES # (AUTO) 1.69 x10^3/uL (0.2-0.8); MONOCYTES % (AUTO) 9 % (2-9); NEUTROPHILS # (AUTO) 14.49 x10^3/uL (1.8-6.8); NEUTROPHILS % (AUTO) 77 % (42-75)
[2019-05-08 06:29] VITALS: BP 120/79
[2019-05-08] MEDS ORDERED: ACETAMINOPHEN 325 MG TABLET ONE (06:32)
[2019-05-08] MEDS: ACETAMINOPHEN 325 MG TABLET PO PRN ×3 (06:33→20:17)
[2019-05-08 06:42] LABS: HCT (SEDRATE) 30.9 % (34.6-47.8)
[2019-05-08] MEDS ORDERED: CATHFLO-ALTEPLASE 2 MG/2 ML CATHFLUSH ONE ×2 (07:00)
[2019-05-08] MEDS: INSULIN REGULAR MEDIUM DOSE QDAY SQ-INSULIN SCH (08:31)
[2019-05-08] MEDS: GABAPENTIN 300 MG CAPSULE PO SCH ×3 (08:37→20:31)
[2019-05-08] MEDS: FLUOXETINE HCL 20 MG CAPSULE PO SCH (09:00)
[2019-05-08] MEDS: BUSPIRONE 5 MG TABLET PO SCH ×2 (09:00→22:56)
[2019-05-08] MEDS: CARBAMAZEPINE 200 MG TABLET PO SCH ×2 (09:00→22:56)
[2019-05-08] MEDS: FLUCONAZOLE 200 MG TABLET PO SCH (09:00)
[2019-05-08] MEDS: ATOMOXETINE 25 MG HOMEMEDPO SCH ×2 (09:00→21:00)
[2019-05-08] MEDS: PIPERACILLIN/TAZO/PMX 4.5GM 100 ML IV SCH ×2 (12:19→19:51)
[2019-05-08] MEDS: ONDANSETRON ODT 4 MG PO PRN (12:26)
[2019-05-08 14:09] VITALS: BP_SYST 118; BP_SYST 162; BP_DIAS 85; BP_DIAS 96
[2019-05-08] MEDS ORDERED: SODIUM CHLORIDE 0.9% 1,000 ML IV ONE (15:00)
[2019-05-08] MEDS ORDERED: SMOF TPN IV SCH (17:00)
[2019-05-08] MEDS ORDERED: DEXTROSE 70% IV SCH (17:00)
[2019-05-08] MEDS ORDERED: [UNRECOGNIZED DRUG - OTHER] IV SCH (17:00)
[2019-05-08] MEDS ORDERED: FAT EMUL IV SCH (17:00)
[2019-05-08] MEDS ORDERED: AMINO ACID 10% IV SCH (17:00)
[2019-05-08] MEDS: FILTER, DISP 1.2 MICRON FOR TPN/PVN IV PRN (17:23)
[2019-05-08 18:39] VITALS: BP 82/49
[2019-05-08 20:19] VITALS: BP 87/48
[2019-05-08] MEDS ORDERED: IBUPROFEN 600 MG TABLET ONE (21:37)
[2019-05-08] MEDS ORDERED: IBUPROFEN 600 MG TABLET PO ONE (22:00)
[2019-05-08 22:56] LABS: MICROSCOPIC INDICATED
[2019-05-08] MEDS: LITHIUM CARBONATE 300 MG CAPSULE PO SCH (22:56)
[2019-05-08 22:57] LABS: CULTURE INDICATED? YES
[2019-05-09 02:35] VITALS: BP 89/64
[2019-05-09] MEDS: ACETAMINOPHEN 325 MG TABLET PO PRN ×3 (02:40→19:54)
[2019-05-09] MEDS: SODIUM CHLORIDE 0.9% 1,000 ML IV SCH ×2 (02:41→19:58)
[2019-05-09] MEDS: PIPERACILLIN/TAZO/PMX 4.5GM 100 ML IV SCH ×3 (03:20→19:58)
[2019-05-09] MEDS: OXYcodone IR 5MG TABLET PO PRN ×4 (05:14→21:03)
[2019-05-09] MEDS: ONDANSETRON 2MG/ML, 2ML IVPush PRN ×2 (05:22→21:02)
[2019-05-09 06:26] LABS: ANION GAP 8 mmol/L (5-15); CALCIUM 7.2 mg/dL (8.5-10.1); CHLORIDE 107 mmol/L (98-107)
[2019-05-09 06:28] LABS: CREATININE 1.48 mg/dL (0.55-1.02)
[2019-05-09 07:56] VITALS: BP 86/57
[2019-05-09] MEDS: ATOMOXETINE 25 MG HOMEMEDPO SCH ×2 (09:00→20:33)
[2019-05-09] MEDS: CARBAMAZEPINE 200 MG TABLET PO SCH ×2 (09:00→21:00)
[2019-05-09] MEDS: FLUOXETINE HCL 20 MG CAPSULE PO SCH (09:00)
[2019-05-09] MEDS: INSULIN REGULAR MEDIUM DOSE QDAY SQ-INSULIN SCH (09:00)
[2019-05-09] MEDS: BUSPIRONE 5 MG TABLET PO SCH ×2 (09:18→21:00)
[2019-05-09] MEDS: GABAPENTIN 300 MG CAPSULE PO SCH ×3 (09:19→21:02)
[2019-05-09] MEDS: FLUCONAZOLE 200 MG TABLET PO SCH (09:19)
[2019-05-09] MEDS ORDERED: POTASSIUM CHLORIDE 40 MEQ in SODIUM CHLORIDE 0.9% 500 ML IV ONE (10:00)
[2019-05-09] MEDS ORDERED: [UNRECOGNIZED DRUG - OTHER] IV SCH (17:00)
[2019-05-09] MEDS ORDERED: FAT EMUL IV SCH (17:00)
[2019-05-09] MEDS ORDERED: DEXTROSE 70% IV SCH (17:00)
[2019-05-09] MEDS ORDERED: AMINO ACID 10% IV SCH (17:00)
[2019-05-09] MEDS ORDERED: SMOF TPN IV SCH (17:00)
[2019-05-09 17:13] VITALS: BP 94/60
[2019-05-09] MEDS: FILTER, DISP 1.2 MICRON FOR TPN/PVN IV PRN (18:00)
[2019-05-09 18:44] VITALS: BP 95/58
[2019-05-09] MEDS: LITHIUM CARBONATE 300 MG CAPSULE PO SCH (21:00)
[2019-05-09 21:35] VITALS: BP 113/66
[2019-05-09 23:25] VITALS: BP 110/65
[2019-05-10] VITALS (14 sets, daily range): BP systolic 80–144; BP diastolic 53–75
[2019-05-10] MEDS: ACETAMINOPHEN 325 MG TABLET PO PRN ×3 (00:06→19:55)
[2019-05-10] MEDS: OXYcodone IR 5MG TABLET PO PRN ×6 (00:06→23:43)
[2019-05-10] MEDS ORDERED: IBUPROFEN 600 MG TABLET PO ONE (01:30)
[2019-05-10 02:32] LABS: MEAN CORPUSCULAR HEMOGLOBIN 29.4 pg (27.0-34.8); MEAN CORPUSCULAR VOLUME 91.9 fL (80-100); MEAN PLATELET VOLUME 8.1 fL (7.4-10.4); PLATELET COUNT 410 x10^3/uL (130-400); RED BLOOD COUNT 2.46 x10^6/uL (3.82-5.3); RED CELL DISTRIBUTION WIDTH 14.3 % (9.6-15.2)
[2019-05-10 02:39] LABS: ANION GAP 6 mmol/L (5-15); CHLORIDE 104 mmol/L (98-107); CREATININE 1.82 mg/dL (0.55-1.02)
[2019-05-10 02:51] LABS: BASOPHILS % (AUTO) 0 % (0-1); EOSINOPHILS # (AUTO) 1.13 x10^3/uL (0-0.4); EOSINOPHILS % (AUTO) 7 % (1-7); LYMPHOCYTES # (AUTO) 0.53 x10^3/uL (1-3.4); LYMPHOCYTES % (AUTO) 3 % (22-44); MD SCAN; MONOCYTES # (AUTO) 0.57 x10^3/uL (0.2-0.8); MONOCYTES % (AUTO) 4 % (2-9); NEUTROPHILS # (AUTO) 13.68 x10^3/uL (1.8-6.8); NEUTROPHILS % (AUTO) 86 % (42-75)
[2019-05-10] MEDS: PIPERACILLIN/TAZO/PMX 4.5GM 100 ML IV SCH ×3 (03:31→19:30)
[2019-05-10 05:50] LABS: PROTIME 12.8 Seconds (9.6-11.5)
[2019-05-10 05:59] LABS: D-DIMER (DIC) 7.56 ug/mlFEU (0.00-0.52)
[2019-05-10] MEDS: SODIUM CHLORIDE 0.9% 1,000 ML IV SCH ×2 (06:45→15:37)
[2019-05-10] MEDS: ATOMOXETINE 25 MG HOMEMEDPO SCH ×2 (09:00→19:51)
[2019-05-10] MEDS: INSULIN REGULAR MEDIUM DOSE QDAY SQ-INSULIN SCH (09:00)
[2019-05-10] MEDS: ONDANSETRON 2MG/ML, 2ML IVPush PRN ×2 (09:17→22:02)
[2019-05-10] MEDS: FLUOXETINE HCL 20 MG CAPSULE PO SCH (09:20)
[2019-05-10] MEDS: BUSPIRONE 5 MG TABLET PO SCH ×2 (09:20→21:41)
[2019-05-10] MEDS: FLUCONAZOLE 200 MG TABLET PO SCH (09:20)
[2019-05-10] MEDS: GABAPENTIN 300 MG CAPSULE PO SCH ×3 (09:20→21:40)
[2019-05-10] MEDS: CARBAMAZEPINE 200 MG TABLET PO SCH ×2 (09:21→21:41)
[2019-05-10] MEDS ORDERED: AMINO ACID 10% IV SCH (17:00)
[2019-05-10] MEDS ORDERED: DEXTROSE 70% IV SCH (17:00)
[2019-05-10] MEDS ORDERED: SMOF TPN IV SCH (17:00)
[2019-05-10] MEDS ORDERED: FAT EMUL IV SCH (17:00)
[2019-05-10] MEDS ORDERED: [UNRECOGNIZED DRUG - OTHER] IV SCH (17:00)
[2019-05-10] MEDS: FILTER, DISP 1.2 MICRON FOR TPN/PVN IV PRN (17:02)
[2019-05-10] MEDS: LITHIUM CARBONATE 300 MG CAPSULE PO SCH (21:40)
[2019-05-11 02:13] VITALS: BP 116/76
[2019-05-11] MEDS: SODIUM CHLORIDE 0.9% 1,000 ML IV SCH ×3 (02:16→21:17)
[2019-05-11] MEDS: ACETAMINOPHEN 325 MG TABLET PO PRN ×4 (02:16→20:08)
[2019-05-11] MEDS: OXYcodone IR 5MG TABLET PO PRN ×6 (03:45→21:08)
[2019-05-11] MEDS: PIPERACILLIN/TAZO/PMX 4.5GM 100 ML IV SCH ×3 (03:45→19:42)
[2019-05-11 05:45] LABS: ALBUMIN 1.6 g/dL (3.4-5.0); ANION GAP 6 mmol/L (5-15); CALCIUM 8.6 mg/dL (8.5-10.1); CHLORIDE 108 mmol/L (98-107)
[2019-05-11 05:48] LABS: ALANINE AMINOTRANSFERASE 72 U/L (12-78); ALKALINE PHOSPHATASE 224 U/L (45-117); BILIRUBIN,TOTAL 0.3 mg/dL (0.2-1.0); CREATININE 1.44 mg/dL (0.55-1.02); TOTAL PROTEIN 5.6 g/dL (6.4-8.2)
[2019-05-11 06:03] LABS: BASOPHILS % (AUTO) 0 % (0-1); EOSINOPHILS # (AUTO) 1.16 x10^3/uL (0-0.4); EOSINOPHILS % (AUTO) 11 % (1-7); LYMPHOCYTES # (AUTO) 0.76 x10^3/uL (1-3.4); LYMPHOCYTES % (AUTO) 7 % (22-44); MD NO; MEAN CORPUSCULAR HEMOGLOBIN 30.4 pg (27.0-34.8); MEAN CORPUSCULAR VOLUME 89.5 fL (80-100); MEAN PLATELET VOLUME 7.9 fL (7.4-10.4); MONOCYTES # (AUTO) 0.74 x10^3/uL (0.2-0.8); MONOCYTES % (AUTO) 7 % (2-9); NEUTROPHILS # (AUTO) 7.76 x10^3/uL (1.8-6.8); NEUTROPHILS % (AUTO) 75 % (42-75); PLATELET COUNT 448 x10^3/uL (130-400); RED BLOOD COUNT 2.64 x10^6/uL (3.82-5.3); RED CELL DISTRIBUTION WIDTH 16.3 % (9.6-15.2)
[2019-05-11 07:53] VITALS: BP 116/79
[2019-05-11] MEDS: FLUOXETINE HCL 20 MG CAPSULE PO SCH (09:00)
[2019-05-11] MEDS: INSULIN REGULAR MEDIUM DOSE QDAY SQ-INSULIN SCH (09:00)
[2019-05-11] MEDS: CARBAMAZEPINE 200 MG TABLET PO SCH ×2 (09:00→21:00)
[2019-05-11] MEDS: GABAPENTIN 300 MG CAPSULE PO SCH ×3 (09:00→21:00)
[2019-05-11] MEDS: BUSPIRONE 5 MG TABLET PO SCH ×2 (09:00→21:00)
[2019-05-11] MEDS: FLUCONAZOLE 200 MG TABLET PO SCH (09:00)
[2019-05-11] MEDS: ATOMOXETINE 25 MG HOMEMEDPO SCH ×2 (09:00→21:00)
[2019-05-11] MEDS: ONDANSETRON ODT 4 MG PO PRN ×2 (09:10→15:21)
[2019-05-11 14:29] VITALS: BP 113/74
[2019-05-11] MEDS: FILTER, DISP 1.2 MICRON FOR TPN/PVN IV PRN (16:03)
[2019-05-11] MEDS ORDERED: SMOF TPN IV SCH (17:00)
[2019-05-11] MEDS ORDERED: [UNRECOGNIZED DRUG - OTHER] IV SCH (17:00)
[2019-05-11] MEDS ORDERED: DEXTROSE 70% IV SCH (17:00)
[2019-05-11] MEDS ORDERED: FAT EMUL IV SCH (17:00)
[2019-05-11] MEDS ORDERED: AMINO ACID 10% IV SCH (17:00)
[2019-05-11 19:11] VITALS: BP 109/56
[2019-05-11] MEDS: LITHIUM CARBONATE 300 MG CAPSULE PO SCH (21:00)
[2019-05-12] MEDS: ACETAMINOPHEN 325 MG TABLET PO PRN (00:09)
[2019-05-12] MEDS: OXYcodone IR 5MG TABLET PO PRN ×8 (00:09→22:32)
[2019-05-12 00:15] VITALS: BP 121/86
[2019-05-12] MEDS: METHOCARBAMOL 750 MG TABLET PO PRN (02:19)
[2019-05-12] MEDS: ONDANSETRON ODT 4 MG PO PRN (02:22)
[2019-05-12] MEDS: PIPERACILLIN/TAZO/PMX 4.5GM 100 ML IV SCH ×3 (03:19→20:04)
[2019-05-12 06:49] LABS: ANION GAP 7 mmol/L (5-15); CALCIUM 8.5 mg/dL (8.5-10.1); CHLORIDE 110 mmol/L (98-107)
[2019-05-12 06:50] LABS: CREATININE 1.23 mg/dL (0.55-1.02)
[2019-05-12 08:00] VITALS: BP 132/95
[2019-05-12] MEDS: INSULIN REGULAR MEDIUM DOSE QDAY SQ-INSULIN SCH (08:14)
[2019-05-12] MEDS: DIAZEPAM 5 MG/ML, 2ML IVPush PRN (08:33)
[2019-05-12] MEDS: BUSPIRONE 5 MG TABLET PO SCH ×2 (08:33→20:04)
[2019-05-12] MEDS: ATOMOXETINE 25 MG HOMEMEDPO SCH ×3 (08:34→21:00)
[2019-05-12] MEDS: CARBAMAZEPINE 200 MG TABLET PO SCH ×2 (08:34→20:04)
[2019-05-12] MEDS: GABAPENTIN 300 MG CAPSULE PO SCH ×3 (08:34→20:05)
[2019-05-12] MEDS: FLUOXETINE HCL 20 MG CAPSULE PO SCH (08:34)
[2019-05-12] MEDS: FLUCONAZOLE 200 MG TABLET PO SCH (08:34)
[2019-05-12 10:08] VITALS: BP 132/95
[2019-05-12] MEDS ORDERED: TPN PER PHARMACY MC PRN (11:00)
[2019-05-12 12:32] VITALS: BP 120/81
[2019-05-12] MEDS ORDERED: AMINO ACID 10% IV SCH (17:00)
[2019-05-12] MEDS ORDERED: [UNRECOGNIZED DRUG - OTHER] IV SCH (17:00)
[2019-05-12] MEDS ORDERED: DEXTROSE 70% IV SCH (17:00)
[2019-05-12] MEDS ORDERED: SMOF TPN IV SCH (17:00)
[2019-05-12] MEDS ORDERED: FAT EMUL IV SCH (17:00)
[2019-05-12] MEDS: FILTER, DISP 1.2 MICRON FOR TPN/PVN IV PRN (17:15)
[2019-05-12] MEDS: LITHIUM CARBONATE 300 MG CAPSULE PO SCH (20:04)
[2019-05-12] MEDS: ONDANSETRON 2MG/ML, 2ML IVPush PRN (20:05)
[2019-05-12 20:37] VITALS: BP 125/87
[2019-05-13 02:18] VITALS: BP 155/106
[2019-05-13 02:40] VITALS: BP 134/88
[2019-05-13] MEDS: PIPERACILLIN/TAZO/PMX 4.5GM 100 ML IV SCH ×3 (03:27→19:58)
[2019-05-13 04:19] LABS: ANION GAP 8 mmol/L (5-15); CALCIUM 9.3 mg/dL (8.5-10.1); CHLORIDE 105 mmol/L (98-107)
[2019-05-13 04:20] LABS: CREATININE 1.22 mg/dL (0.55-1.02)
[2019-05-13] MEDS: OXYcodone IR 5MG TABLET PO PRN ×4 (05:48→19:59)
[2019-05-13] MEDS: METHOCARBAMOL 750 MG TABLET PO PRN (05:48)
[2019-05-13] MEDS: ONDANSETRON ODT 4 MG PO PRN ×2 (08:45→19:57)
[2019-05-13] MEDS: ATOMOXETINE 25 MG HOMEMEDPO SCH ×2 (09:00→21:00)
[2019-05-13] MEDS: FLUCONAZOLE 200 MG TABLET PO SCH (09:24)
[2019-05-13] MEDS: GABAPENTIN 300 MG CAPSULE PO SCH ×3 (09:24→19:58)
[2019-05-13] MEDS: BUSPIRONE 5 MG TABLET PO SCH ×2 (09:24→19:58)
[2019-05-13] MEDS: FLUOXETINE HCL 20 MG CAPSULE PO SCH (09:25)
[2019-05-13] MEDS: CARBAMAZEPINE 200 MG TABLET PO SCH ×2 (09:25→19:59)
[2019-05-13 13:21] VITALS: BP 116/79
[2019-05-13] MEDS: LITHIUM CARBONATE 300 MG CAPSULE PO SCH (19:59)
[2019-05-13 21:00] VITALS: BP 100/68
[2019-05-13] MEDS: LITHIUM CARBONATE 300 MG TABLET.ER PO SCH (21:00)
[2019-05-14 02:28] VITALS: BP 120/82
[2019-05-14] MEDS: PIPERACILLIN/TAZO/PMX 4.5GM 100 ML IV SCH ×2 (03:30→11:33)
[2019-05-14] MEDS: OXYcodone IR 5MG TABLET PO PRN ×2 (07:43→17:11)
[2019-05-14] MEDS: METHOCARBAMOL 750 MG TABLET PO PRN (07:45)
[2019-05-14 07:55] VITALS: BP 109/77
[2019-05-14] MEDS: ATOMOXETINE 25 MG HOMEMEDPO SCH ×2 (09:00→20:50)
[2019-05-14] MEDS: FLUOXETINE HCL 20 MG CAPSULE PO SCH (09:37)
[2019-05-14] MEDS: CARBAMAZEPINE 200 MG TABLET PO SCH ×2 (09:37→20:38)
[2019-05-14] MEDS: BUSPIRONE 5 MG TABLET PO SCH ×2 (09:37→20:37)
[2019-05-14] MEDS: FLUCONAZOLE 200 MG TABLET PO SCH (09:37)
[2019-05-14] MEDS: GABAPENTIN 300 MG CAPSULE PO SCH ×3 (09:37→20:37)
[2019-05-14] MEDS: ONDANSETRON ODT 4 MG PO PRN ×2 (09:37→20:44)
[2019-05-14] MEDS: MEROPENEM 1 GM in SODIUM CHLORIDE 0.9% 100 ML IV SCH ×2 (13:15→20:37)
[2019-05-14 13:19] VITALS: BP 111/78
[2019-05-14 19:05] VITALS: BP 113/77
[2019-05-14] MEDS: LITHIUM CARBONATE 300 MG TABLET.ER PO SCH (20:38)
[2019-05-14] MEDS: ONDANSETRON 2MG/ML, 2ML IVPush PRN (20:40)
[2019-05-14 21:43] VITALS: BP 117/81
[2019-05-15] MEDS: OXYcodone IR 5MG TABLET PO PRN ×3 (02:18→09:39)
[2019-05-15 02:40] VITALS: BP 111/75
[2019-05-15] MEDS: MEROPENEM 1 GM in SODIUM CHLORIDE 0.9% 100 ML IV SCH ×2 (04:47→12:26)
[2019-05-15] MEDS ORDERED: CATHFLO-ALTEPLASE 2 MG/2 ML CATHFLUSH ONE ×2 (05:00)
[2019-05-15 06:02] LABS: BASOPHILS # (AUTO) 0.01 x10^3/uL (0-0.1); BASOPHILS % (AUTO) 0 % (0-1); EOSINOPHILS # (AUTO) 0.57 x10^3/uL (0-0.4); EOSINOPHILS % (AUTO) 5 % (1-7); LYMPHOCYTES # (AUTO) 1.26 x10^3/uL (1-3.4); LYMPHOCYTES % (AUTO) 11 % (22-44); MD NO; MEAN CORPUSCULAR HEMOGLOBIN 29.4 pg (27.0-34.8); MEAN CORPUSCULAR HGB CONC 32.6 g/dL (32.4-35.8); MEAN PLATELET VOLUME 6.6 fL (7.4-10.4); MONOCYTES # (AUTO) 0.82 x10^3/uL (0.2-0.8); MONOCYTES % (AUTO) 7 % (2-9); NEUTROPHILS # (AUTO) 8.89 x10^3/uL (1.8-6.8); NEUTROPHILS % (AUTO) 77 % (42-75); PLATELET COUNT 716 x10^3/uL (130-400); RED BLOOD COUNT 3.34 x10^6/uL (3.82-5.3); RED CELL DISTRIBUTION WIDTH 15.9 % (9.6-15.2)
[2019-05-15 06:13] LABS: ALANINE AMINOTRANSFERASE 88 U/L (12-78); ALBUMIN 2.1 g/dL (3.4-5.0); ANION GAP 5 mmol/L (5-15); CALCIUM 8.8 mg/dL (8.5-10.1); CHLORIDE 107 mmol/L (98-107); CREATININE 1.12 mg/dL (0.55-1.02)
[2019-05-15 06:34] LABS: ALKALINE PHOSPHATASE 393 U/L (45-117); BILIRUBIN,TOTAL 0.3 mg/dL (0.2-1.0); TOTAL PROTEIN 6.4 g/dL (6.4-8.2)
[2019-05-15 07:34] VITALS: BP 107/65
[2019-05-15] MEDS ORDERED: FLUC200T PO (08:32)
[2019-05-15] MEDS ORDERED: OXYC5TAB3 PO (08:32)
[2019-05-15] MEDS ORDERED: MERO1VIA15 IVPB (08:32)
[2019-05-15 08:33] LABS: HCT (SEDRATE) 30.5 % (34.6-47.8)
[2019-05-15] MEDS: ATOMOXETINE 25 MG HOMEMEDPO SCH (08:51)
[2019-05-15] MEDS: ONDANSETRON ODT 4 MG PO PRN (08:51)
[2019-05-15] MEDS: FLUCONAZOLE 200 MG TABLET PO SCH (09:00)
[2019-05-15] MEDS: GABAPENTIN 300 MG CAPSULE PO SCH (09:00)
[2019-05-15] MEDS: CARBAMAZEPINE 200 MG TABLET PO SCH (09:00)
[2019-05-15] MEDS: BUSPIRONE 5 MG TABLET PO SCH (09:00)
[2019-05-15] MEDS: FLUOXETINE HCL 20 MG CAPSULE PO SCH (09:00)
[2019-05-15 10:48] VITALS: BP 112/77
== END 2019-05-15 12:58 | disposition home health service (06) | DRG 853 ==
LOC: ED 23:58 → 4NE 04-15 → CCU 04-15 16:51 → 4NE 04-16 12:06 → CCU 04-22 12:30 → 4NE 04-29 00:21
PROVIDERS: ADMIT Family Medicine; ATTEND Internal Medicine
PROC: 0K9N3ZZ Drainage of Right Hip Muscle, Percutaneous Approach (ICD-10-PCS; 2019-04-15)
PROC: 0DTF0ZZ Resection of Right Large Intestine, Open Approach (ICD-10-PCS; principal; 2019-04-15 14:30)
PROC: 02HV33Z Insertion of Infusion Device into Superior Vena Cava, Percutaneous Approach (ICD-10-PCS; 2019-04-21)
PROC: B5181ZA Fluoroscopy of Superior Vena Cava using Low Osmolar Contrast, Guidance (ICD-10-PCS; 2019-04-21)
PROC: B548ZZA Ultrasonography of Superior Vena Cava, Guidance (ICD-10-PCS; 2019-04-21)
PROC: 0W9G0ZZ Drainage of Peritoneal Cavity, Open Approach (ICD-10-PCS; 2019-04-22)
PROC: 0W9G0ZZ Drainage of Peritoneal Cavity, Open Approach (ICD-10-PCS; 2019-04-25)
PROC: 30233K1 Transfusion of Nonautologous Frozen Plasma into Peripheral Vein, Percutaneous Approach (ICD-10-PCS; 2019-04-25)
PROC: 30233N1 Transfusion of Nonautologous Red Blood Cells into Peripheral Vein, Percutaneous Approach (ICD-10-PCS; 2019-04-25)
PROC: 009Y0ZZ Drainage of Lumbar Spinal Cord, Open Approach (ICD-10-PCS; 2019-04-27)
PROC: 3E1M38Z Irrigation of Peritoneal Cavity using Irrigating Substance, Percutaneous Approach (ICD-10-PCS; 2019-04-27)
PROC: 02PYX3Z Removal of Infusion Device from Great Vessel, External Approach (ICD-10-PCS; 2019-05-01)
PROC: 02HV33Z Insertion of Infusion Device into Superior Vena Cava, Percutaneous Approach (ICD-10-PCS; 2019-05-01)
PROC: B5181ZA Fluoroscopy of Superior Vena Cava using Low Osmolar Contrast, Guidance (ICD-10-PCS; 2019-05-01)
PROC: B548ZZA Ultrasonography of Superior Vena Cava, Guidance (ICD-10-PCS; 2019-05-01)
DX: A41.4 Sepsis due to anaerobes (principal); E43 Unspecified severe protein-calorie malnutrition; K63.1 Perforation of intestine (nontraumatic); K68.12 Psoas muscle abscess; K68.9 Other disorders of retroperitoneum; E87.1 Hypo-osmolality and hyponatremia; J90 Pleural effusion, not elsewhere classified; J98.11 Atelectasis; K56.0 Paralytic ileus; N17.9 Acute kidney failure, unspecified; N39.0 Urinary tract infection, site not specified; R18.8 Other ascites; S36.509A Unspecified injury of unspecified part of colon, initial encounter; D63.8 Anemia in other chronic diseases classified elsewhere; E87.6 Hypokalemia; F41.9 Anxiety disorder, unspecified; G89.18 Other acute postprocedural pain; G89.4 Chronic pain syndrome; K66.0 Peritoneal adhesions (postprocedural) (postinfection); M41.9 Scoliosis, unspecified; M43.10 Spondylolisthesis, site unspecified; M48.061 Spinal stenosis, lumbar region without neurogenic claudication; M54.16 Radiculopathy, lumbar region; M71.30 Other bursal cyst, unspecified site; N73.9 Female pelvic inflammatory disease, unspecified; Z79.2 Long term (current) use of antibiotics; Z87.891 Personal history of nicotine dependence; Z98.1 Arthrodesis status; Y92.89 Other specified places as the place of occurrence of the external cause
CPT/HCPCS: 36415; 72100; 74018; 76000; 77001; 84145; 87106; J3475; J3490; S0020; 36573; 49407; 70450; 71045; 74176; 74177; 76770; 80048; 80053; 80202; 81001; 82565; 82570; 82962; 83605; 83690; 83735; 84100; 84134; 84300; 84478; 84520; 84703; 85025; 85049; 85379; 85384; 85610; 85651; 85730; 86140; 86803; 86850; 86860; 86880; 86900; 86923; 87040; 87070; 87075; 87076; 87077; 87081; 87086; 87205; 87324; 88307; 93005; 95938; 95941; 99156; 99157; C1729; C1767; G0378; J0171; J0295; J0610; J1100; J1170; J1450; J1815; J1885; J2175; J2185; J2248; J2250; J2270; J2405; J2543; J2550; J2704; J2710; J2997; J3010; J3360; J3370; J3480; Q0162; Q9967; C1751; C1760; C9352; J0330; J2310; J2370; J2800; J3420; J7030; J7040; J7050; J7120; P9016; P9017